=== PATIENT | female | born 1940 | race Two or more races ===

== ENCOUNTER 2022-05-21 12:31 | Emergency (ER) | payer MEDICARE ==
[~2022-05-21] VITALS: Ht 152.4 cm; Wt 49.9 kg
[2022-05-21 13:00] LABS: HEMATOCRIT 38.9 % (31.2-41.9); MEAN CORPUSCULAR HEMOGLOBIN 31.2 uug (24.7-32.8); MEAN CORPUSCULAR VOLUME 93.9 fL (75.5-95.3); PLATELET COUNT (AUTO) 256 K/uL (179-408)
[2022-05-21] MEDS ORDERED: METO25TA6 PO (13:15)
[2022-05-21] MEDS ORDERED: GABA600T12 PO (13:15)
[2022-05-21] MEDS ORDERED: LORA-258 PO (13:15)
[2022-05-21] MEDS ORDERED: HYDR-4077 PO (13:15)
--- NOTE | 2022-05-21 13:20 | NUR ---
at bedside, examining pt.
[2022-05-21 13:31] LABS: CARBON DIOXIDE 29 mmol/L (21-32); CHLORIDE 92 mmol/L (98-107); CREATININE 0.8 mg/dL (0.6-1.3); GLUCOSE 96 mg/dL (74-106); POTASSIUM 4.4 mmol/L (3.5-5.1); UREA NITROGEN, BLOOD 16 mg/dL (7-18)
[2022-05-21 13:40] LABS: ALANINE AMINOTRANSFERASE 46 U/L (14-59); ALKALINE PHOSPHATASE 68 U/L (50-136); ASPARTATE AMINOTRANSFERASE 35 U/L (15-37); BILIRUBIN,DIRECT 0.2 mg/dL (0.0-0.2); BILIRUBIN,TOTAL 0.5 mg/dL (0.2-1.0); TOTAL PROTEIN, SERUM 7.4 g/dL (6.4-8.2)
--- NOTE | 2022-05-21 15:09 | NUR ---
DCD instructions given to pt. who verbalized understanding. 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
[2022-05-21] MEDS ORDERED: MECL-159 PO (15:13)
--- NOTE | 2022-05-21 15:44 | NUR ---
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
--- NOTE | 2022-05-21 17:06 | NUR ---
HR of 79 SBP of 157/94. RR18, patient requesting ativan 5mg as stated " I take this medications twice a days as needed. call and educating pt. on care plan.
[2022-05-21] MEDS ORDERED: LORAZEPAM 0.5 MG TABLET ONE (17:27)
[2022-05-21] MEDS ORDERED: LORAZEPAM 0.5 MG TABLET PO ONE (17:30)
--- NOTE | 2022-05-21 17:47 | NUR ---
Awating transportation to take her back to [place]. Patient restless anxious and asking why transportation is not here. Patient informed over and over that ambulance is gonna be here to take her back.
--- NOTE | 2022-05-21 17:51 | NUR ---
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
--- NOTE | 2022-05-21 17:56 | NUR ---
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 PT..[id number]. IV line dcd.
== END 2022-05-21 18:05 ==
LOC: ER 12:31
DX: I10 Essential (primary) hypertension (principal); R42 Dizziness and giddiness; I25.2 Old myocardial infarction; Z95.5 Presence of coronary angioplasty implant and graft; H40.9 Unspecified glaucoma; H35.30 Unspecified macular degeneration; H81.10 Benign paroxysmal vertigo, unspecified ear; K58.9 Irritable bowel syndrome, unspecified; J45.909 Unspecified asthma, uncomplicated; R91.1 Solitary pulmonary nodule; M48.061 Spinal stenosis, lumbar region without neurogenic claudication; R32 Unspecified urinary incontinence; S00.83XA Contusion of other part of head, initial encounter; W22.8XXA Striking against or struck by other objects, initial encounter; Y92.89 Other specified places as the place of occurrence of the external cause; I25.10 Atherosclerotic heart disease of native coronary artery without angina pectoris; Z88.0 Allergy status to penicillin; Z88.2 Allergy status to sulfonamides; Z88.8 Allergy status to other drugs, medicaments and biological substances
CPT/HCPCS: 36415; 70450; 71045; 84484; 85025; 93005; A4663

== ENCOUNTER 2022-10-19 20:49 | Emergency (ER) | payer BC, MEDICARE ==
[~2022-10-19] VITALS: Ht 144.8 cm; Wt 49.4 kg
[~2022-10-19 20:49] MED LIST: GABA600T12 PO; HYDR-4077 PO; LORA-258 PO; MECL-159 PO; METO25TA6 PO
[2022-10-19] MEDS ORDERED: MECLIZINE HCL 25 MG TABLET PO ONE (22:15)
[2022-10-19 22:30] LABS: HEMATOCRIT 38.5 % (31.2-41.9); MEAN CORPUSCULAR HEMOGLOBIN 31.5 uug (24.7-32.8); MEAN CORPUSCULAR VOLUME 95.4 fL (75.5-95.3); PLATELET COUNT (AUTO) 191 K/uL (179-408)
[2022-10-19] MEDS ORDERED: MECLIZINE HCL 25 MG TABLET ONE (22:33)
[2022-10-19 22:40] LABS: NEUTROPHILS % (MANUAL) 54 % (42-75)
[2022-10-19 22:41] LABS: EOSINOPHILS % (MANUAL) 10 % (0-8); LYMPHOCYTES % (MANUAL) 19 % (20-40); MONOCYTES % (MANUAL) 16 % (2-10)
[2022-10-19 22:42] LABS: BASOPHILS % (MANUAL) 1 % (0-2); CREATININE 0.8 mg/dL (0.6-1.3); POTASSIUM 3.8 mmol/L (3.5-5.1)
--- NOTE | 2022-10-19 22:55 | NUR ---
Patient walked to the bathroom, standby assist.
[2022-10-19] MEDS ORDERED: MAGNESIUM SULFATE/D5W 200 ML ONE (23:52)
[2022-10-19] MEDS: MAGNESIUM SULFATE/D5W 100 ML IV SCH (23:57)
[2022-10-20] MEDS: MAGNESIUM SULFATE/D5W 100 ML IV SCH (00:35)
[2022-10-20 00:38] LABS: *BILIRUBIN,URIN NEGATIVE (NEGATIVE); *BLOOD, URINE NEGATIVE (NEGATIVE); *COLOR,URINE YELLOW (YELLOW); *KETONES,URINE NEGATIVE (NEGATIVE); *UROBILINOGEN,URINE 0.2 E.U./dl (NORMAL); LEUKOCYTE ESTERASE ,URINE TRACE (NEGATIVE); NITRITE, URINE NEGATIVE (NEGATIVE); UGLUCOSE NEGATIVE (NEGATIVE)
[2022-10-20 00:42] LABS: *CLARITY,URINE HAZY (CLEAR)
[2022-10-20 00:43] LABS: BACTERIA,URINE FEW /HPF (NONE SEEN); SQUAMOUS EPITHELIAL CELL,UR FEW /HPF (NONE SEEN)
[2022-10-20] MEDS ORDERED: NITROFURANTOIN/NITROFURAN MAC 100 MG CAPSULE PO ONE ×2 (02:00→02:09)
[2022-10-20] MEDS ORDERED: NITR100C6 PO (04:13)
[2022-10-20] MEDS ORDERED: MECL-159 PO (04:13)
--- NOTE | 2022-10-20 04:46 | NUR ---
Patient discharged to home in stable condition. Written and verbal after care instructions given. Patient verbalizes understanding of instructions. Stressed follow up or return to ER for worsening s/s.
--- NOTE | 2022-10-20 04:52 | NUR ---
Called [facility] ambulance for transportation back to [facility]. 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
--- NOTE | 2022-10-20 05:23 | NUR ---
Patient reported feeling dizziness. Given verbal order per Dr. Murillo to give another dose of Antivert 25mg PO.
[2022-10-20] MEDS ORDERED: MECLIZINE HCL 25 MG TABLET ONE (05:30)
[2022-10-20] MEDS ORDERED: MECLIZINE HCL 25 MG TABLET PO ONE (05:45)
--- NOTE | 2022-10-20 05:50 | NUR ---
Patient complaining of left shoulder pain. Patient requesting tylenol.
[2022-10-20] MEDS ORDERED: ACETAMINOPHEN 325 MG TABLET ONE (05:53)
--- NOTE | 2022-10-20 05:54 | NUR ---
Given verbal order by Dr. Murillo to give patient Acetaminophen 325mg PO for shoulder pain.
[2022-10-20] MEDS ORDERED: ACETAMINOPHEN 325 MG TABLET PO ONE (06:15)
--- NOTE | 2022-10-20 06:20 | NUR ---
Patient's blood pressure 160/[address] [facility] transport arrival[address] Murillo aware. Per Dr. Murillo, patient medically clear for discharge. No additional orders at this time.
--- NOTE | 2022-10-20 06:45 | NUR ---
[facility] picked patient up via gurney to transfer patient back to [facility] with personal belongings. Patient in stable conditions, no signs of distress.
--- NOTE | 2022-10-20 06:52 | NUR ---
Patient discharged to home in stable condition via gurney with personal belongings. Written and verbal after care instructions given. Patient verbalizes understanding of instructions. Stressed follow up or return to ER for worsening s/s.
[2022-10-20 06:55] VITALS: BP 151/86
== END 2022-10-20 06:50 ==
LOC: ER 20:55
DX: R42 Dizziness and giddiness (principal); N39.0 Urinary tract infection, site not specified; I10 Essential (primary) hypertension; I25.10 Atherosclerotic heart disease of native coronary artery without angina pectoris; I25.2 Old myocardial infarction; Z88.0 Allergy status to penicillin; Z95.5 Presence of coronary angioplasty implant and graft; Z87.09 Personal history of other diseases of the respiratory system; K58.9 Irritable bowel syndrome, unspecified; J45.909 Unspecified asthma, uncomplicated; Z88.2 Allergy status to sulfonamides; Z88.6 Allergy status to analgesic agent; Z88.1 Allergy status to other antibiotic agents; Z79.899 Other long term (current) drug therapy
CPT/HCPCS: 99284; 96365; 96366; 80048; 83036; 83735; 85025; 36415; 81001; 85007; J3475; 70030-TC; A4663; J8597

== ENCOUNTER 2023-01-02 07:00 | Emergency (ER) | payer MEDICARE, BC ==
[~2023-01-02] VITALS: Ht 152.4 cm; Wt 49.9 kg
[~2023-01-02 07:00] MED LIST changes: +NITR100C6 PO
[2023-01-02] MEDS ORDERED: ACETAMINOPHEN 325 MG TABLET PO ONE (07:30)
--- NOTE | 2023-01-02 07:34 | NUR ---
Pt seen by . Safety measures in place. Will continue to monitor.
[2023-01-02] MEDS ORDERED: ACETAMINOPHEN 325 MG TABLET ONE (07:35)
--- NOTE | 2023-01-02 08:54 | NUR ---
Pt signed discharge paperwork. Contacted [employer] to pick Pt up and return her back to [facility], [place]. Iván (concrete paving machine operator) stated they will come "in about 30 min." Safety measures in place. Will continue to monitor.
--- NOTE | 2023-01-02 09:34 | NUR ---
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 Gave report to Fito Warren (EMT).
--- NOTE | 2023-01-02 09:47 | NUR ---
Patient discharged to [facility] in stable condition. Written and verbal after care instructions given. Patient picked up by [employer] [place] [employer]. Patient transferred [facility]. Patient verbalizes understanding of instructions. Stressed follow up or return to ER for worsening s/s.
[2023-01-02 09:48] VITALS: BP 166/71
== END 2023-01-02 09:49 | disposition home or self-care (01) ==
LOC: ER 07:00
DX: S51.012A Laceration without foreign body of left elbow, initial encounter (principal); R51.9 Headache, unspecified; I25.10 Atherosclerotic heart disease of native coronary artery without angina pectoris; J45.909 Unspecified asthma, uncomplicated; Z88.0 Allergy status to penicillin; Z88.2 Allergy status to sulfonamides; Z88.5 Allergy status to narcotic agent; Z88.8 Allergy status to other drugs, medicaments and biological substances; Z79.899 Other long term (current) drug therapy; W18.39XA Other fall on same level, initial encounter; Y93.89 Activity, other specified; Y92.89 Other specified places as the place of occurrence of the external cause; Y99.8 Other external cause status
CPT/HCPCS: 70450; 72125; 72170; A4663

== ENCOUNTER 2023-01-21 05:44 | Inpatient (IN) | payer MEDICARE, BC ==
[~2023-01-21] VITALS: Ht 144.8 cm; Wt 52.6 kg
--- NOTE | 2023-01-21 05:51 | NUR ---
Dr. Haywood at bedside. MSE in progress.
[2023-01-21] MEDS ORDERED: TRAMADOL HCL 50 MG TABLET ONE (05:57)
[2023-01-21] MEDS ORDERED: TRAMADOL HCL 50 MG TABLET PO ONE (06:00)
--- NOTE | 2023-01-21 07:14 | NUR ---
assumed patient care 82 years old female s/p mechanical fall patient at Ct.
[2023-01-21] MEDS ORDERED: LORAZEPAM 0.5 MG TABLET PO ONE (08:15)
[2023-01-21] MEDS ORDERED: LORAZEPAM 0.5 MG TABLET ONE (08:33)
[2023-01-21 08:38] LABS: *BILIRUBIN,URIN NEGATIVE (NEGATIVE); *BLOOD, URINE NEGATIVE (NEGATIVE); *CLARITY,URINE CLEAR (CLEAR); *COLOR,URINE YELLOW (YELLOW); *KETONES,URINE NEGATIVE (NEGATIVE); *UROBILINOGEN,URINE 0.2 E.U./dl (NORMAL); LEUKOCYTE ESTERASE ,URINE NEGATIVE (NEGATIVE); NITRITE, URINE NEGATIVE (NEGATIVE); PH,URINE 6.5 (5.0-8.0); UGLUCOSE NEGATIVE (NEGATIVE)
[2023-01-21 08:39] LABS: HEMATOCRIT 38.4 % (31.2-41.9); MEAN CORPUSCULAR HEMOGLOBIN 31.5 uug (24.7-32.8); MEAN CORPUSCULAR VOLUME 95.4 fL (75.5-95.3); PLATELET COUNT (AUTO) 250 K/uL (179-408)
[2023-01-21 08:50] LABS: CREATININE 0.7 mg/dL (0.6-1.3); POTASSIUM 3.8 mmol/L (3.5-5.1)
[2023-01-21 08:56] LABS: BILIRUBIN,TOTAL 0.6 mg/dL (0.2-1.0); TOTAL PROTEIN, SERUM 7.4 g/dL (6.4-8.2)
--- NOTE | 2023-01-21 09:00 | NUR ---
Dr Rider, Neuro surgeon paged by MARY URIAS.
--- NOTE | 2023-01-21 09:24 | NUR ---
Paged Dr Braxton for Tele admit.
--- NOTE | 2023-01-21 10:25 | NUR ---
patient stable for transfer to unit bed 321 for continuity of care no sob no cp, alert, able to answer all questions.
--- NOTE | 2023-01-21 10:30 | NUR ---
Admitted via [place], accompanied by nurse. Oriented to surroundings.
[2023-01-21 11:50] VITALS: BP 95/51
[2023-01-21] MEDS ORDERED: TEMAZEPAM 15 MG CAPSULE PO PRN (12:15)
[2023-01-21] MEDS ORDERED: MORPHINE SULFATE 2 MG/1 ML DISP.SYRIN IV PRN (12:15)
[2023-01-21] MEDS ORDERED: MAGNESIUM HYDROXIDE 30 ML LIQUID UDC PO PRN (12:15)
[2023-01-21] MEDS ORDERED: TEMAZEPAM 7.5 MG CAPSULE PO PRN (12:30)
[2023-01-21] MEDS ORDERED: LOSA25TA3 PO (12:57)
[2023-01-21] MEDS ORDERED: ROSU5TAB PO (12:57)
[2023-01-21] MEDS ORDERED: ASPI-1101 PO (12:57)
[2023-01-21] MEDS ORDERED: METO50TA7 PO (12:57)
[2023-01-21] MEDS ORDERED: ASCO500T85 PO (12:57)
[2023-01-21] MEDS ORDERED: VIT1CAPS44 PO (12:57)
[2023-01-21] MEDS ORDERED: AMLO5TAB4 PO (12:57)
[2023-01-21] MEDS ORDERED: LATA2.5D2 EACHEYE (12:57)
--- NOTE | 2023-01-21 13:00 | NUR ---
Placed on telemetry. Voiding qs. Denies pain or discomfort.
[2023-01-21] MEDS ORDERED: TRAM50TA2 PO (13:01)
[2023-01-21] MEDS ORDERED: FLUT12AE20 IH (13:01)
[2023-01-21] MEDS ORDERED: LOPE2TAB25 PO (13:01)
[2023-01-21] MEDS ORDERED: ACET-2605 PO (13:01)
[2023-01-21] MEDS ORDERED: SENN8.6T19 PO (13:01)
[2023-01-21] MEDS ORDERED: ALBU18HF2 IH (13:01)
[2023-01-21] MEDS ORDERED: DOCU-141 PO (13:01)
[2023-01-21] MEDS ORDERED: CHOL10005 PO (13:01)
[2023-01-21 15:41] VITALS: BP 116/59
[2023-01-21] MEDS ORDERED: hydrALAZINE HCL 50 MG TABLET PO SCH (17:00)
[2023-01-21] MEDS: TRAMADOL HCL 50 MG TABLET PO PRN (18:31)
[2023-01-21 20:00] VITALS: BP 164/76
--- NOTE | 2023-01-21 20:00 | NUR ---
patient in bed awake and alert and follow commands and able to moved upper and lower extremities lower bilateral extremities weak she uses a cane .pure wick in placed with yellowish urine . no respiratory distress noted breathing even and unlabored . hob up call light placed with in reach advised to call and not to get oob.
[2023-01-21] MEDS ORDERED: SENNOSIDES 1 TABLET PO PRN (20:45)
[2023-01-21] MEDS ORDERED: TRAMADOL HCL 50 MG TABLET PO PRN (20:45)
[2023-01-21] MEDS ORDERED: ALBUTEROL SULFATE 2.5 MG/3 ML NEBU NEB PRN (20:45)
[2023-01-21] MEDS ORDERED: DOCUSATE SODIUM 250 MG CAPSULE PO SCH (21:00)
[2023-01-21 21:30] VITALS: BP 153/56
[2023-01-21] MEDS: DOCUSATE SODIUM 100 MG CAPSULE PO SCH (21:49)
--- NOTE | 2023-01-21 22:10 | NUR ---
patient requested something to eat given jello and applejuice .
--- NOTE | 2023-01-21 22:11 | NUR ---
changed soiled linens and gown . patient able to help in turning and repositioning .
[2023-01-22] MEDS: ONDANSETRON 4 MG/2 ML VIAL IV PRN ×2 (01:25→17:52)
[2023-01-22] MEDS: LORAZEPAM 0.5 MG TABLET PO PRN ×2 (01:25→17:52)
--- NOTE | 2023-01-22 01:25 | NUR ---
patient called and requested Ativan she said Ativan comfort her and put her to sleep . given prn Ativan patient MOM c/o she wants to moved her bowel .
[2023-01-22 04:00] VITALS: BP 132/55
--- NOTE | 2023-01-22 05:00 | NUR ---
patient in bed sleeping no respiratory distress noted .
[2023-01-22] MEDS: PANTOPRAZOLE SODIUM 40 MG TABLET.DR PO SCH (06:12)
[2023-01-22 06:14] LABS: HEMATOCRIT 36.2 % (31.2-41.9); MEAN CORPUSCULAR HEMOGLOBIN 31.9 uug (24.7-32.8); MEAN CORPUSCULAR VOLUME 94.3 fL (75.5-95.3); PLATELET COUNT (AUTO) 237 K/uL (179-408)
[2023-01-22 06:31] LABS: THYROID STIMULATING HORMONE 1.902 mIU/mL (0.358-3.740)
[2023-01-22 06:45] LABS: ALANINE AMINOTRANSFERASE 57 U/L (14-59); ALKALINE PHOSPHATASE 95 U/L (50-136); ASPARTATE AMINOTRANSFERASE 44 U/L (15-37); BILIRUBIN,TOTAL 0.5 mg/dL (0.2-1.0); CARBON DIOXIDE 28 mmol/L (21-32); CHLORIDE 96 mmol/L (98-107); CHOLESTEROL 140 mg/dL (<200); CREATININE 0.7 mg/dL (0.6-1.3); GLUCOSE 96 mg/dL (74-106); HDL CHOLESTEROL 79 mg/dL (40-60); MAGNESIUM 1.7 mg/dL (1.8-2.4); PHOSPHOROUS 3.9 mg/dL (2.5-4.9); POTASSIUM 4.2 mmol/L (3.5-5.1); TOTAL PROTEIN, SERUM 6.8 g/dL (6.4-8.2); TRIGLYCERIDES 81 MG/DL (30-150); UREA NITROGEN, BLOOD 12 mg/dL (7-18)
[2023-01-22 08:52] VITALS: BP 155/64
[2023-01-22] MEDS ORDERED: MAGNESIUM SULFATE/D5W 100 ML IV SCH (09:00)
[2023-01-22] MEDS ORDERED: Medication Not On Formulary EA (Vit C/E/Zn/Coppr/Lutein/Zeaxan (Preservision Areds 2 Sof PO SCH (09:00)
[2023-01-22] MEDS: TRAMADOL HCL 50 MG TABLET PO PRN ×2 (09:02→20:22)
[2023-01-22] MEDS: AMLODIPINE 5 MG TABLET PO SCH (11:09)
[2023-01-22 11:33] VITALS: BP 140/72
[2023-01-22 15:56] VITALS: BP 129/58
[2023-01-22] MEDS: DOCUSATE SODIUM 100 MG CAPSULE PO SCH (20:21)
[2023-01-22] MEDS: LATANOPROST OPHT DROP 2.5 ML BOTTLE EACHEYE SCH (20:26)
[2023-01-22 20:48] VITALS: BP 142/47
[2023-01-22] MEDS: ACETAMINOPHEN 325 MG TABLET PO PRN (22:50)
[2023-01-23 04:38] VITALS: BP 122/42
[2023-01-23] MEDS: PANTOPRAZOLE SODIUM 40 MG TABLET.DR PO SCH (06:09)
--- NOTE | 2023-01-23 07:30 | NUR ---
Awake, alert, oriented x 4, able to move all extremities on purpose. Call light with in reach. Bed alarm on
[2023-01-23] MEDS: AMLODIPINE 5 MG TABLET PO SCH (08:40)
[2023-01-23] MEDS ORDERED: BISACODYL 10 MG SUPP.RECT RC PRN (09:45)
--- NOTE | 2023-01-23 10:30 | NUR ---
No BM x 3 days. Senokot po and Dulcolax suppository given. With BM to formed stool in moderate amount.
[2023-01-23 12:07] VITALS: BP 117/46
--- NOTE | 2023-01-23 14:00 | NUR ---
Resting between care
[2023-01-23 16:00] VITALS: BP 120/49
[2023-01-23] MEDS: TRAMADOL HCL 50 MG TABLET PO PRN (16:31)
--- NOTE | 2023-01-23 16:31 | NUR ---
Reports of neck pain 04/22, medicated with Tramadol with relief
[2023-01-23] MEDS: LORAZEPAM 0.5 MG TABLET PO PRN ×2 (17:26→22:49)
--- NOTE | 2023-01-23 17:34 | NUR ---
Anxious, HR 140. Redirected and reassurance given. Ativan given as ordered
[2023-01-23 20:38] VITALS: BP 120/43
[2023-01-23] MEDS: LATANOPROST OPHT DROP 2.5 ML BOTTLE EACHEYE SCH (20:57)
[2023-01-23] MEDS: ACETAMINOPHEN 325 MG TABLET PO PRN (20:57)
--- NOTE | 2023-01-23 20:57 | NUR ---
patient called and verbalized lower leg pain -hip pain neck pain -generalized body pain given Tylenol po .
[2023-01-23] MEDS: DOCUSATE SODIUM 100 MG CAPSULE PO SCH (20:58)
[2023-01-24 04:00] VITALS: BP 119/48
--- NOTE | 2023-01-24 04:30 | NUR ---
am care done help mobile heavy equipment mechanic changed patient incontinent of urine patient able to help in turning .
[2023-01-24] MEDS: PANTOPRAZOLE SODIUM 40 MG TABLET.DR PO SCH (06:15)
[2023-01-24] MEDS: AMLODIPINE 5 MG TABLET PO SCH (08:39)
[2023-01-24] MEDS: TRAMADOL HCL 50 MG TABLET PO PRN (09:24)
[2023-01-24] MEDS: LORAZEPAM 0.5 MG TABLET PO PRN (09:25)
[2023-01-24 12:00] VITALS: BP 126/54
[2023-01-24] MEDS ORDERED: FUROSEMIDE 20 MG/2 ML VIAL IV ONE (12:45)
[2023-01-24] MEDS ORDERED: TEMA7.5C PO (14:43)
[2023-01-24] MEDS ORDERED: BISA10SU12 RC (14:43)
[2023-01-24] MEDS ORDERED: MAGN400O6 PO (14:43)
[2023-01-24] MEDS ORDERED: ALBU2.5V7 NEB (14:43)
[2023-01-24] MEDS ORDERED: DOCU-141 PO (14:43)
[2023-01-24] MEDS ORDERED: GABA300C PO (14:43)
[2023-01-24] MEDS ORDERED: PANT40TA49 PO (14:43)
[2023-01-24] MEDS: ONDANSETRON 4 MG/2 ML VIAL IV PRN (15:18)
--- NOTE | 2023-01-24 15:30 | NUR ---
Son at bedside. Happy that Mom is being accepted to [facility].
[2023-01-24 16:11] VITALS: BP 148/49
--- NOTE | 2023-01-24 17:30 | NUR ---
Discharged to ARU. No c/o discomfort.
== END 2023-01-24 17:25 | DRG 86 ==
LOC: ER 05:47 → TELE3 10:25
PROVIDERS: ADMIT Internal Medicine; ATTEND Internal Medicine
DX: S06.6X0A Traumatic subarachnoid hemorrhage without loss of consciousness, initial encounter (principal); D68.59 Other primary thrombophilia; R40.2362 Coma scale, best motor response, obeys commands, at arrival to emergency department; R40.2142 Coma scale, eyes open, spontaneous, at arrival to emergency department; R40.2252 Coma scale, best verbal response, oriented, at arrival to emergency department; S00.03XA Contusion of scalp, initial encounter; S30.0XXA Contusion of lower back and pelvis, initial encounter; W01.198A Fall on same level from slipping, tripping and stumbling with subsequent striking against other object, initial encounter; Y92.098 Other place in other non-institutional residence as the place of occurrence of the external cause; K58.1 Irritable bowel syndrome with constipation; I25.2 Old myocardial infarction; I25.10 Atherosclerotic heart disease of native coronary artery without angina pectoris; J45.909 Unspecified asthma, uncomplicated; M43.12 Spondylolisthesis, cervical region; I35.8 Other nonrheumatic aortic valve disorders; F41.9 Anxiety disorder, unspecified; Z86.03 Personal history of neoplasm of uncertain behavior; Z74.09 Other reduced mobility; R26.89 Other abnormalities of gait and mobility; I11.9 Hypertensive heart disease without heart failure; M99.51 Intervertebral disc stenosis of neural canal of cervical region; S06.5X0A Traumatic subdural hemorrhage without loss of consciousness, initial encounter; M48.061 Spinal stenosis, lumbar region without neurogenic claudication; H40.9 Unspecified glaucoma; H35.30 Unspecified macular degeneration; Z20.822 Contact with and (suspected) exposure to COVID-19; Z95.5 Presence of coronary angioplasty implant and graft; Z88.1 Allergy status to other antibiotic agents; Z88.0 Allergy status to penicillin; Z88.2 Allergy status to sulfonamides; Z88.8 Allergy status to other drugs, medicaments and biological substances; Z79.899 Other long term (current) drug therapy; Z87.891 Personal history of nicotine dependence; I70.91 Generalized atherosclerosis
CPT/HCPCS: 36415; 70450; 71045; 72125; 72170; 72220; 83735; 84100; 84443; 84484; 85025; 85730; 93005; 93307; A4663; G0378; J1940; J2405; J3475

== ENCOUNTER 2023-01-24 17:46 | Inpatient (IN) | payer MEDICARE, BC ==
[~2023-01-24] VITALS: Ht 144.8 cm; Wt 52.7 kg
[~2023-01-24 17:46] MED LIST changes: +ACET-2605 PO; +ALBU18HF2 IH; +ALBU2.5V7 NEB; +AMLO5TAB4 PO; +ASCO500T85 PO; +ASPI-1101 PO; +BISA10SU12 RC; +CHOL10005 PO; +DOCU-141 PO; +FLUT12AE20 IH; +GABA300C PO; -HYDR-4077 PO; +LATA2.5D2 EACHEYE; +LOPE2TAB25 PO; +LOSA25TA3 PO; +MAGN400O6 PO; -METO25TA6 PO; +METO50TA7 PO; -NITR100C6 PO; +PANT40TA49 PO; +ROSU5TAB PO; +SENN8.6T19 PO; +TEMA7.5C PO; +TRAM50TA2 PO; +VIT1CAPS44 PO
[2023-01-24] MEDS ORDERED: ALBUTEROL SULFATE 2.5 MG/3 ML NEBU NEB PRN (18:45)
[2023-01-24] MEDS ORDERED: MECLIZINE HCL 25 MG TABLET PO PRN (18:45)
[2023-01-24] MEDS ORDERED: MAGNESIUM HYDROXIDE 30 ML LIQUID UDC PO PRN (18:45)
[2023-01-24] MEDS: LORAZEPAM 0.5 MG TABLET PO PRN (19:54)
[2023-01-24] MEDS: TRAMADOL HCL 50 MG TABLET PO PRN (19:56)
[2023-01-24 20:10] VITALS: BP 112/53
[2023-01-24] MEDS: GABAPENTIN 300 MG CAPSULE PO SCH (20:44)
[2023-01-24] MEDS: DOCUSATE SODIUM 100 MG CAPSULE PO SCH (20:45)
[2023-01-24] MEDS ORDERED: LATANOPROST OPHT DROP 2.5 ML BOTTLE EACHEYE SCH (21:00)
[2023-01-24] MEDS ORDERED: ATORVASTATIN 10 MG TABLET PO SCH (21:15)
[2023-01-25] MEDS: TEMAZEPAM 7.5 MG CAPSULE PO PRN (00:01)
[2023-01-25 04:06] VITALS: BP 113/41
[2023-01-25] MEDS: PANTOPRAZOLE SODIUM 40 MG TABLET.DR PO SCH (06:20)
[2023-01-25] MEDS ORDERED: LATANOPROST OPHT DROP 2.5 ML BOTTLE EACHEYE SCH (06:35)
--- NOTE | 2023-01-25 07:02 | NUR ---
Patient slept well, no noted acute distress. IV access to RFA intact and patent. Medicated for pain as ordered. Needs assessed and attended to.
[2023-01-25 08:00] VITALS: BP 123/54
--- NOTE | 2023-01-25 08:00 | NUR ---
Sleeping, appears comfortable.
[2023-01-25] MEDS ORDERED: Medication Not On Formulary EA (Vit C/E/Zn/Coppr/Lutein/Zeaxan (Preservision Areds 2 Sof PO SCH (09:00)
[2023-01-25] MEDS: BETA CAROTENE/VIT C & E/MIN TABLET PO SCH ×2 (09:21→16:53)
[2023-01-25] MEDS: AMLODIPINE 5 MG TABLET PO SCH (09:21)
[2023-01-25] MEDS: REMEDY ESSENTIAL ZINC PASTE 113 GM TOP SCH ×2 (09:22→20:46)
[2023-01-25] MEDS: BISACODYL 10 MG SUPP.RECT RC PRN (13:15)
--- NOTE | 2023-01-25 13:15 | NUR ---
No BM x 2 days, Dulcolax suppository given per request.
[2023-01-25 16:00] VITALS: BP 109/52
[2023-01-25] MEDS: ACETAMINOPHEN 325 MG TABLET PO PRN (17:13)
--- NOTE | 2023-01-25 17:15 | NUR ---
Reports of headache. Tylenol po given with relief
[2023-01-25 20:11] VITALS: BP 116/48
[2023-01-25] MEDS: GABAPENTIN 300 MG CAPSULE PO SCH (20:45)
[2023-01-25] MEDS: DOCUSATE SODIUM 100 MG CAPSULE PO SCH (20:45)
[2023-01-25] MEDS: ATORVASTATIN 10 MG TABLET PO SCH (20:45)
[2023-01-25] MEDS: LATANOPROST OPHT DROP 2.5 ML BOTTLE EACHEYE SCH (20:47)
[2023-01-25] MEDS: LORAZEPAM 0.5 MG TABLET PO PRN (22:25)
[2023-01-26] MEDS: ACETAMINOPHEN 325 MG TABLET PO PRN ×2 (00:21→21:53)
[2023-01-26 04:00] VITALS: BP 124/44
[2023-01-26] MEDS: PANTOPRAZOLE SODIUM 40 MG TABLET.DR PO SCH (06:08)
[2023-01-26 07:20] VITALS: BP 123/52
[2023-01-26] MEDS: AMLODIPINE 5 MG TABLET PO SCH (08:39)
[2023-01-26] MEDS: BETA CAROTENE/VIT C & E/MIN TABLET PO SCH ×2 (08:39→16:48)
[2023-01-26] MEDS: REMEDY ESSENTIAL ZINC PASTE 113 GM TOP SCH ×2 (08:40→20:40)
--- NOTE | 2023-01-26 09:49 | NUR ---
0730-Rec'd patient in bed, awake, in no apparent respiratory distress; patient denies pain or any discomfort, skin W/D to the touch, afebrile; A/Ox2-3, verbalizes needs and follows directions. Call light at reach and encouraged to use it every time help is needed. 0900-Schedule medications administered as ordered, no ASE noted. Oral fluids taken well. Patient continues eating her breakfast with no swallowing problems observed, supervision and assist provided as needed. All safety measures in place.
[2023-01-26 16:00] VITALS: BP 114/45
[2023-01-26] MEDS: TRAMADOL HCL 50 MG TABLET PO PRN (17:21)
--- NOTE | 2023-01-26 19:46 | NUR ---
Patient within usual baseline through out the shift, no DILCIA noted; Assist provided with her ADLs/personal care/hygiene. Patient with BRP, assist to the restroom as needed through out the shift. Medication administered as scheduled/ordered by MD. No ASE noted to medication. Patient tolerating meals well, no C/O GI discomfort. Continues under rehab for PT/OT skilled services as ordered and tolerated well. Patient able to actively participate in therapy and improving. Safety precautions observed. Call light at reach, reminded and encouraged patient to use it every time help is needed.
[2023-01-26 20:00] VITALS: BP 136/51
[2023-01-26] MEDS: DOCUSATE SODIUM 100 MG CAPSULE PO SCH (20:39)
[2023-01-26] MEDS: ATORVASTATIN 10 MG TABLET PO SCH (20:39)
[2023-01-26] MEDS: GABAPENTIN 300 MG CAPSULE PO SCH (20:39)
[2023-01-26] MEDS: LATANOPROST OPHT DROP 2.5 ML BOTTLE EACHEYE SCH (20:39)
[2023-01-26] MEDS: GUAIFENESIN LA 600 MG TABLET.SA PO SCH (20:39)
[2023-01-26] MEDS: TEMAZEPAM 7.5 MG CAPSULE PO PRN (21:54)
[2023-01-27 04:00] VITALS: BP 129/47
--- NOTE | 2023-01-27 04:06 | NUR ---
Slept comfortably. Denies any pain or discomfort. IV site removed. Noted to be infiltrated. Elevated right arm and provided warm compress for 30 min. Pt verbalized relief. All needs attended. Call light within reach. Safety precautions maintained.
[2023-01-27] MEDS: PANTOPRAZOLE SODIUM 40 MG TABLET.DR PO SCH (06:12)
[2023-01-27] MEDS: TRAMADOL HCL 50 MG TABLET PO PRN ×2 (06:24→12:28)
[2023-01-27 06:54] LABS: HEMATOCRIT 34.4 % (31.2-41.9); MEAN CORPUSCULAR HEMOGLOBIN 32.1 uug (24.7-32.8); MEAN CORPUSCULAR VOLUME 94.9 fL (75.5-95.3); PLATELET COUNT (AUTO) 202 K/uL (179-408)
[2023-01-27 07:20] LABS: CARBON DIOXIDE 29 mmol/L (21-32); CHLORIDE 94 mmol/L (98-107); CREATININE 0.9 mg/dL (0.6-1.3); GLUCOSE 93 mg/dL (74-106); PHOSPHOROUS 4.2 mg/dL (2.5-4.9); POTASSIUM 4.1 mmol/L (3.5-5.1); UREA NITROGEN, BLOOD 19 mg/dL (7-18)
[2023-01-27] MEDS: GUAIFENESIN LA 600 MG TABLET.SA PO SCH ×2 (08:46→21:10)
[2023-01-27] MEDS: REMEDY ESSENTIAL ZINC PASTE 113 GM TOP SCH ×2 (08:46→21:11)
[2023-01-27] MEDS: BETA CAROTENE/VIT C & E/MIN TABLET PO SCH ×2 (08:46→16:31)
[2023-01-27] MEDS: AMLODIPINE 5 MG TABLET PO SCH (08:46)
--- NOTE | 2023-01-27 13:11 | NUR ---
INTERDISCIPLINARY TEAM CONFERENCE
[2023-01-27 14:22] LABS: BAND % (MANUAL) 0 % (0-10); LYMPHOCYTES % (MANUAL) 17 % (20-40); NEUTROPHILS % (MANUAL) 46 % (42-75)
[2023-01-27 14:23] LABS: BASOPHILS % (MANUAL) 0 % (0-2); BLASTS, MANUAL % 0 % (0-0); EOSINOPHILS % (MANUAL) 17 % (0-8); METAMYELOCYTES % 0 % (0-1); MONOCYTES % (MANUAL) 14 % (2-10); MYELOCYTES % 0 % (0-0); PROMYELOCYTES % 0 %; REACTIVE LYMPHOCYTES 3 % (0-0)
--- NOTE | 2023-01-27 14:30 | NUR ---
INDIVIDUALIZED PLAN OF CARE
--- NOTE | 2023-01-27 14:47 | NUR ---
0730-Patient in bed, awake, A/Ox3, verbalizes needs and follows simple directions. Patient denies pain. No resp. distress/cough noted. Bedside table in place with all needed items accessible, call light at reach. Encouraged to use it every time help is needed. 0900-Scheduled medication administered no ASE noted. Oral fluids taken as offered; patient with no c/o pain.
--- NOTE | 2023-01-27 19:02 | NUR ---
NO DILCIA NOTED THROUGH OUT THE SHIFT. PATIENT IN STABLE BASELINE CONDITIONS. VSS, CARE PROVIDED AT ROUTINE INTERVALS AND NEEDED, ASSIST WITH ADLS THROUGH OUT THE SHIFT. REPOSITIONED Q2HR FOR COMFORT AND PRESSURE RELIEF. OOB WITH REHAB FOR PT/OT SKILLED SERVICES AND ACTIVELY ABLE TO PARTICIPATE IN THERAPY AND MAKING GOOD PROGRESS. ALL NEEDS ANTICIPATED AND MET. ENDORSED PROPERLY TO RELIEVING NOC SHIFT RN.
[2023-01-27 20:36] VITALS: BP 145/63
[2023-01-27] MEDS: ATORVASTATIN 10 MG TABLET PO SCH (21:10)
[2023-01-27] MEDS: DOCUSATE SODIUM 100 MG CAPSULE PO SCH (21:10)
[2023-01-27] MEDS: LATANOPROST OPHT DROP 2.5 ML BOTTLE EACHEYE SCH (21:11)
[2023-01-27] MEDS: GABAPENTIN 300 MG CAPSULE PO SCH (21:11)
[2023-01-27] MEDS: LORAZEPAM 0.5 MG TABLET PO PRN (23:06)
[2023-01-28] MEDS: TRAMADOL HCL 50 MG TABLET PO PRN ×2 (00:15→21:30)
[2023-01-28 05:35] VITALS: BP 141/82
[2023-01-28] MEDS: PANTOPRAZOLE SODIUM 40 MG TABLET.DR PO SCH (05:54)
[2023-01-28] MEDS: AMLODIPINE 5 MG TABLET PO SCH (09:00)
[2023-01-28] MEDS: BETA CAROTENE/VIT C & E/MIN TABLET PO SCH ×2 (09:15→17:35)
[2023-01-28] MEDS: ACETAMINOPHEN 325 MG TABLET PO PRN (09:15)
[2023-01-28] MEDS: REMEDY ESSENTIAL ZINC PASTE 113 GM TOP SCH ×2 (09:16→20:03)
[2023-01-28] MEDS: GUAIFENESIN LA 600 MG TABLET.SA PO SCH ×2 (09:17→20:03)
--- NOTE | 2023-01-28 11:31 | NUR ---
Nursing- Has purewick on during the initial rounds, patient sat at the edge of bed during her meals. Ambulated by P.T on the hallway using FWW , no signs and symtoms of any dizziness during her activities B/P lying 130 50 HR 84, sitting 105/50 HR 90, b/ standing 107/51 HR 102 . encouraged to drink her fluids . Adequate relief of pain after tylenol 650 mg. po, tolerated her activities . Safety reviewed , compliance noted.
[2023-01-28] MEDS: SENNOSIDES 1 TABLET PO PRN (14:51)
[2023-01-28] MEDS: BISACODYL 10 MG SUPP.RECT RC PRN (14:51)
[2023-01-28 15:41] VITALS: BP 139/54
--- NOTE | 2023-01-28 16:38 | NUR ---
Nursing- Patient complained of being constipated,no BM for few days.Adequate fluid intake, requested a dulcolax supp., 1 administered WA, ambulated to the bathroom with own fww. cga., with good results, set up with her hygiene. Safety continue to emphasized, continue compliance noted.
[2023-01-28 20:00] VITALS: BP 158/61
[2023-01-28] MEDS: GABAPENTIN 300 MG CAPSULE PO SCH (20:03)
[2023-01-28] MEDS: DOCUSATE SODIUM 100 MG CAPSULE PO SCH (20:03)
[2023-01-28] MEDS: ATORVASTATIN 10 MG TABLET PO SCH (20:03)
[2023-01-28] MEDS: LORAZEPAM 0.5 MG TABLET PO PRN (20:03)
[2023-01-28] MEDS: LATANOPROST OPHT DROP 2.5 ML BOTTLE EACHEYE SCH (20:03)
[2023-01-29 04:00] VITALS: BP 133/57
[2023-01-29] MEDS: PANTOPRAZOLE SODIUM 40 MG TABLET.DR PO SCH (05:48)
--- NOTE | 2023-01-29 07:20 | NUR ---
Patient awake, alert and pleasant. She does not appear to be in distress and denies pain.
[2023-01-29 07:54] VITALS: BP 100/45
[2023-01-29] MEDS: REMEDY ESSENTIAL ZINC PASTE 113 GM TOP SCH ×2 (08:43→20:20)
[2023-01-29] MEDS: GUAIFENESIN LA 600 MG TABLET.SA PO SCH ×2 (08:43→20:20)
[2023-01-29] MEDS: AMLODIPINE 5 MG TABLET PO SCH (08:43)
[2023-01-29] MEDS: BETA CAROTENE/VIT C & E/MIN TABLET PO SCH ×2 (09:39→17:09)
[2023-01-29] MEDS: BISACODYL 10 MG SUPP.RECT RC PRN (13:09)
--- NOTE | 2023-01-29 13:10 | NUR ---
Patient states she feels bloated and thinks she need to have BM. Patient asked to have dulcolax supp, supp given as ordered and patient had a BM.
--- NOTE | 2023-01-29 15:00 | NUR ---
Patient assisted to the bathroom, had BM
[2023-01-29 16:31] VITALS: BP 117/50
[2023-01-29] MEDS: TRAMADOL HCL 50 MG TABLET PO PRN (18:46)
[2023-01-29 20:10] VITALS: BP 139/60
[2023-01-29] MEDS: LORAZEPAM 0.5 MG TABLET PO PRN (20:20)
[2023-01-29] MEDS: LATANOPROST OPHT DROP 2.5 ML BOTTLE EACHEYE SCH (20:20)
[2023-01-29] MEDS: ATORVASTATIN 10 MG TABLET PO SCH (20:20)
[2023-01-29] MEDS: DOCUSATE SODIUM 100 MG CAPSULE PO SCH (20:20)
[2023-01-29] MEDS: GABAPENTIN 300 MG CAPSULE PO SCH (20:20)
[2023-01-29] MEDS: ACETAMINOPHEN 325 MG TABLET PO PRN (22:15)
[2023-01-29] MEDS: TEMAZEPAM 7.5 MG CAPSULE PO PRN (22:37)
[2023-01-30 04:43] VITALS: BP 142/57
[2023-01-30] MEDS: PANTOPRAZOLE SODIUM 40 MG TABLET.DR PO SCH (06:03)
[2023-01-30 07:36] LABS: ALANINE AMINOTRANSFERASE 34 U/L (14-59); ALKALINE PHOSPHATASE 92 U/L (50-136); ASPARTATE AMINOTRANSFERASE 32 U/L (15-37); BILIRUBIN,TOTAL 0.5 mg/dL (0.2-1.0); CARBON DIOXIDE 29 mmol/L (21-32); CHLORIDE 97 mmol/L (98-107); CREATININE 0.8 mg/dL (0.6-1.3); GLUCOSE 83 mg/dL (74-106); PHOSPHOROUS 3.7 mg/dL (2.5-4.9); POTASSIUM 3.7 mmol/L (3.5-5.1); TOTAL PROTEIN, SERUM 7.2 g/dL (6.4-8.2); UREA NITROGEN, BLOOD 15 mg/dL (7-18)
[2023-01-30 07:37] VITALS: BP 123/42
[2023-01-30 07:39] LABS: THYROID STIMULATING HORMONE 2.508 mIU/mL (0.358-3.740)
[2023-01-30 07:43] LABS: HEMATOCRIT 36.1 % (31.2-41.9); MEAN CORPUSCULAR HEMOGLOBIN 30.9 uug (24.7-32.8); MEAN CORPUSCULAR VOLUME 95.1 fL (75.5-95.3); PLATELET COUNT (AUTO) 276 K/uL (179-408)
[2023-01-30 08:14] LABS: NEUTROPHILS % (MANUAL) 0 % (42-75)
[2023-01-30] MEDS: GUAIFENESIN LA 600 MG TABLET.SA PO SCH ×2 (09:30→20:02)
[2023-01-30] MEDS: AMLODIPINE 5 MG TABLET PO SCH (09:30)
[2023-01-30] MEDS: BETA CAROTENE/VIT C & E/MIN TABLET PO SCH ×2 (09:31→16:04)
[2023-01-30] MEDS: REMEDY ESSENTIAL ZINC PASTE 113 GM TOP SCH ×2 (09:31→20:04)
[2023-01-30] MEDS: TRAMADOL HCL 50 MG TABLET PO PRN (12:12)
--- NOTE | 2023-01-30 12:12 | NUR ---
25mg of tramadol wasted with wittness of another nurse on duty RN Ying
[2023-01-30 16:00] VITALS: BP 137/53
[2023-01-30] MEDS: LATANOPROST OPHT DROP 2.5 ML BOTTLE EACHEYE SCH (20:03)
[2023-01-30] MEDS: ATORVASTATIN 10 MG TABLET PO SCH (20:03)
[2023-01-30] MEDS: DOCUSATE SODIUM 100 MG CAPSULE PO SCH (20:03)
[2023-01-30] MEDS: GABAPENTIN 300 MG CAPSULE PO SCH (20:04)
[2023-01-30 20:35] VITALS: BP 125/48
[2023-01-30] MEDS: TEMAZEPAM 7.5 MG CAPSULE PO PRN (21:48)
[2023-01-31] MEDS: PANTOPRAZOLE SODIUM 40 MG TABLET.DR PO SCH (06:02)
[2023-01-31 06:13] VITALS: BP 120/52
[2023-01-31 07:51] VITALS: BP 130/53
[2023-01-31] MEDS: BETA CAROTENE/VIT C & E/MIN TABLET PO SCH ×2 (08:30→17:41)
[2023-01-31] MEDS: AMLODIPINE 5 MG TABLET PO SCH (08:30)
[2023-01-31] MEDS: GUAIFENESIN LA 600 MG TABLET.SA PO SCH ×2 (08:31→20:50)
[2023-01-31] MEDS: REMEDY ESSENTIAL ZINC PASTE 113 GM TOP SCH ×2 (08:31→20:50)
--- NOTE | 2023-01-31 09:59 | NUR ---
7:30, Pt received lying in bed, awake in no acute distress. She denies pain but requesting to walk. Report low appetite but states eating part of her breakfast and drink well. Pt with diaper, dry per Pt. Pt instructed to call if any help needed and to use call light
--- NOTE | 2023-01-31 10:37 | NUR ---
9:00, Pt was resting in bed, all meds given, Pt has no new requests
[2023-01-31] MEDS: BISACODYL 10 MG SUPP.RECT RC PRN (13:29)
[2023-01-31 15:48] VITALS: BP 128/69
[2023-01-31] MEDS: LORAZEPAM 0.5 MG TABLET PO PRN (16:23)
--- NOTE | 2023-01-31 19:08 | NUR ---
Pt getting report at 1200 Pt assisted with ambulation TO br, Pt requested stool softener effective had two BMs. Pt requested as well Antivert medication and Ativan given for anxiety. Pt assisted with her meals and her needs were attended. Pt worked with PT stable condition mo SOB observed Endorse care to incoming nurse
[2023-01-31] MEDS: ATORVASTATIN 10 MG TABLET PO SCH (20:50)
[2023-01-31] MEDS: DOCUSATE SODIUM 100 MG CAPSULE PO SCH (20:50)
[2023-01-31] MEDS: GABAPENTIN 300 MG CAPSULE PO SCH (20:50)
[2023-01-31] MEDS: LATANOPROST OPHT DROP 2.5 ML BOTTLE EACHEYE SCH (20:50)
[2023-01-31 21:01] VITALS: BP 153/62
--- NOTE | 2023-01-31 22:15 | NUR ---
patient requested she wants to used pure wick for tonight removed patient pull ups .
[2023-01-31] MEDS: TEMAZEPAM 7.5 MG CAPSULE PO PRN (22:26)
--- NOTE | 2023-01-31 22:26 | NUR ---
patient called c/o requesting sleeping medication to help her sleep given prn Restoril patient tolerated medication with water .
[2023-02-01 04:26] VITALS: BP 153/56
[2023-02-01] MEDS: PANTOPRAZOLE SODIUM 40 MG TABLET.DR PO SCH (06:40)
--- NOTE | 2023-02-01 06:54 | NUR ---
uneventful night slept most of the shift needs attended to .
[2023-02-01 08:06] VITALS: BP 137/52
[2023-02-01] MEDS: AMLODIPINE 5 MG TABLET PO SCH (09:49)
[2023-02-01] MEDS: BETA CAROTENE/VIT C & E/MIN TABLET PO SCH ×2 (09:49→17:26)
[2023-02-01] MEDS: GUAIFENESIN LA 600 MG TABLET.SA PO SCH ×2 (09:49→20:33)
[2023-02-01] MEDS: REMEDY ESSENTIAL ZINC PASTE 113 GM TOP SCH ×2 (09:50→20:33)
--- NOTE | 2023-02-01 14:30 | NUR ---
Pt came to me 10 minutes ago and stated "I would like to go home if I can have a day like today" tomorrow (Wednesday) and Wednesday, with PT and OT and getting up out of bed and moving. "I don't want to stay here, I'm afraid I'll get sick with pneumonia." I reassured her that she is in good hands and most likely will not get sick her, that she is here for rehab. Pt insisted. I notified Raul, Leather Stripping Machine Operator on her behalf. CM just walked in to her room to discuss.
[2023-02-01 15:09] VITALS: BP 138/61
[2023-02-01] MEDS: ACETAMINOPHEN 325 MG TABLET PO PRN (17:26)
[2023-02-01] MEDS: SENNOSIDES 1 TABLET PO PRN (17:38)
[2023-02-01 19:25] VITALS: BP 133/69
[2023-02-01] MEDS: DOCUSATE SODIUM 100 MG CAPSULE PO SCH (20:33)
[2023-02-01] MEDS: ATORVASTATIN 10 MG TABLET PO SCH (20:33)
[2023-02-01] MEDS: GABAPENTIN 300 MG CAPSULE PO SCH (20:33)
[2023-02-01] MEDS: LATANOPROST OPHT DROP 2.5 ML BOTTLE EACHEYE SCH (20:33)
[2023-02-01] MEDS: LORAZEPAM 0.5 MG TABLET PO PRN (20:56)
[2023-02-02 05:14] VITALS: BP 126/56
[2023-02-02] MEDS: PANTOPRAZOLE SODIUM 40 MG TABLET.DR PO SCH (05:47)
[2023-02-02 07:46] VITALS: BP 140/69
[2023-02-02] MEDS: AMLODIPINE 5 MG TABLET PO SCH (08:14)
[2023-02-02] MEDS: BETA CAROTENE/VIT C & E/MIN TABLET PO SCH ×2 (08:14→16:44)
[2023-02-02] MEDS: GUAIFENESIN LA 600 MG TABLET.SA PO SCH ×2 (08:14→19:51)
[2023-02-02] MEDS: REMEDY ESSENTIAL ZINC PASTE 113 GM TOP SCH ×2 (08:15→19:53)
[2023-02-02] MEDS: TRAMADOL HCL 50 MG TABLET PO PRN ×2 (13:23→19:51)
[2023-02-02 15:08] VITALS: BP 122/46
[2023-02-02] MEDS: ACETAMINOPHEN 325 MG TABLET PO PRN (16:44)
--- NOTE | 2023-02-02 18:21 | NUR ---
patient is ambulatory with FWW, no sob, respirations are even nonlabored, skin warm and dry to touch, ambulates in the hallway with fww frequently. tolerated PT, OT well. no events noted.
[2023-02-02] MEDS: GABAPENTIN 300 MG CAPSULE PO SCH (19:52)
[2023-02-02] MEDS: ATORVASTATIN 10 MG TABLET PO SCH (19:53)
[2023-02-02] MEDS: LATANOPROST OPHT DROP 2.5 ML BOTTLE EACHEYE SCH (19:53)
[2023-02-02] MEDS: DOCUSATE SODIUM 100 MG CAPSULE PO SCH (19:53)
[2023-02-02] MEDS: LORAZEPAM 0.5 MG TABLET PO PRN (21:21)
[2023-02-03 00:54] VITALS: BP 119/61
[2023-02-03] MEDS: PANTOPRAZOLE SODIUM 40 MG TABLET.DR PO SCH (06:34)
[2023-02-03 06:47] VITALS: BP 117/73
--- NOTE | 2023-02-03 07:45 | NUR ---
Nursing notes, patient in her room awake, walking with FWW, with steady gait, no S/S distress noted, patient complain of pain and requested Tramadol po given as ordered. Fall and safety precautions implemented. Will continue to monitor.
[2023-02-03 07:49] VITALS: BP 134/60
[2023-02-03] MEDS: TRAMADOL HCL 50 MG TABLET PO PRN ×2 (07:52→20:40)
[2023-02-03] MEDS: BETA CAROTENE/VIT C & E/MIN TABLET PO SCH ×2 (08:00→16:12)
[2023-02-03] MEDS: GUAIFENESIN LA 600 MG TABLET.SA PO SCH ×2 (08:00→20:31)
[2023-02-03] MEDS: AMLODIPINE 5 MG TABLET PO SCH (08:02)
[2023-02-03] MEDS: REMEDY ESSENTIAL ZINC PASTE 113 GM TOP SCH ×2 (08:02→20:50)
[2023-02-03] MEDS: ACETAMINOPHEN 325 MG TABLET PO PRN ×2 (10:36→17:12)
--- NOTE | 2023-02-03 12:28 | NUR ---
Nursing notes: Patient is eating lunch in room at this time, denies pain or discomforts, participated with PT/OT treatment plan. pain medication given as ordered for pain and is was effective. Fall and safety implemented and emotional support provided. Will continue to monitor.
--- NOTE | 2023-02-03 14:23 | NUR ---
INTERDISCIPLINARY TEAM CONFERENCE
[2023-02-03 15:13] VITALS: BP 143/48
[2023-02-03] MEDS: LORAZEPAM 0.5 MG TABLET PO PRN (17:12)
[2023-02-03 19:58] VITALS: BP 137/61
[2023-02-03] MEDS: DOCUSATE SODIUM 100 MG CAPSULE PO SCH (20:30)
[2023-02-03] MEDS: GABAPENTIN 300 MG CAPSULE PO SCH (20:30)
[2023-02-03] MEDS: ATORVASTATIN 10 MG TABLET PO SCH (20:30)
[2023-02-03] MEDS: LATANOPROST OPHT DROP 2.5 ML BOTTLE EACHEYE SCH (20:31)
[2023-02-04] MEDS: ACETAMINOPHEN 325 MG TABLET PO PRN ×2 (02:47→13:53)
[2023-02-04 04:30] VITALS: BP 118/45
[2023-02-04] MEDS: PANTOPRAZOLE SODIUM 40 MG TABLET.DR PO SCH (06:13)
[2023-02-04 08:00] VITALS: BP 149/64
--- NOTE | 2023-02-04 08:00 | NUR ---
resting in bed , denies of pain at this time, states is going back to [facility] today, safety measures in place, looking forward for her therapy, call light within reach
[2023-02-04] MEDS: BETA CAROTENE/VIT C & E/MIN TABLET PO SCH (08:56)
[2023-02-04] MEDS: AMLODIPINE 5 MG TABLET PO SCH (08:56)
[2023-02-04] MEDS: GUAIFENESIN LA 600 MG TABLET.SA PO SCH (08:56)
[2023-02-04] MEDS: REMEDY ESSENTIAL ZINC PASTE 113 GM TOP SCH (08:57)
[2023-02-04] MEDS: TRAMADOL HCL 50 MG TABLET PO PRN (11:07)
--- NOTE | 2023-02-04 11:07 | NUR ---
c/o of generalized pain- medicated with Ultram as ordered for pain with relief
--- NOTE | 2023-02-04 13:00 | NUR ---
pt made aware ambulance will be here at 1500
--- NOTE | 2023-02-04 13:55 | NUR ---
medicated with Tylenol 650mg as ordered for mild pain- quite anxious to go back to [facility]-pt reassured
--- NOTE | 2023-02-04 14:20 | NUR ---
report given to Anusha at [facility]
[2023-02-04 15:39] VITALS: BP 144/69
--- NOTE | 2023-02-04 15:50 | NUR ---
ambulance here, ID bracelet given, discharge instructions given and verbalized understanding, all belongings with her, taken per adalid in stable condition
--- NOTE | 2023-02-05 14:22 | NUR ---
INTERDISCIPLINARY TEAM CONFERENCE
== END 2023-02-04 15:50 | disposition home health service (06) | DRG 949 ==
PROVIDERS: ADMIT Physical Medicine & Rehabilitation Pain Medicine; ATTEND Physical Medicine & Rehabilitation Pain Medicine
DX: S06.6XAD Traumatic subarachnoid hemorrhage with loss of consciousness status unknown, subsequent encounter (principal); I21.A1 Myocardial infarction type 2; D68.59 Other primary thrombophilia; E22.2 Syndrome of inappropriate secretion of antidiuretic hormone; S06.5XAD Traumatic subdural hemorrhage with loss of consciousness status unknown, subsequent encounter; I25.10 Atherosclerotic heart disease of native coronary artery without angina pectoris; I25.2 Old myocardial infarction; I10 Essential (primary) hypertension; E78.5 Hyperlipidemia, unspecified; W18.30XD Fall on same level, unspecified, subsequent encounter; M43.12 Spondylolisthesis, cervical region; J45.909 Unspecified asthma, uncomplicated; I35.8 Other nonrheumatic aortic valve disorders; M48.02 Spinal stenosis, cervical region; H81.10 Benign paroxysmal vertigo, unspecified ear; M51.36 Other intervertebral disc degeneration, lumbar region; Z20.822 Contact with and (suspected) exposure to COVID-19; Z79.899 Other long term (current) drug therapy; Z87.891 Personal history of nicotine dependence; Z88.0 Allergy status to penicillin; Z88.1 Allergy status to other antibiotic agents; Z88.2 Allergy status to sulfonamides; Z88.8 Allergy status to other drugs, medicaments and biological substances; R26.9 Unspecified abnormalities of gait and mobility; I35.1 Nonrheumatic aortic (valve) insufficiency; R53.1 Weakness
CPT/HCPCS: 36415; 70030-TC; 83735; 83935; 84100; 84300; 84443; 84550; 85025; 97535-GO-CO; J8597

== ENCOUNTER 2023-02-15 11:01 | Emergency (ER) | payer MEDICARE, BC ==
[~2023-02-15] VITALS: Ht 144.8 cm; Wt 54.9 kg
[~2023-02-15 11:01] MED LIST changes: -ACET-2605 PO; -ALBU18HF2 IH; -ASCO500T85 PO; -ASPI-1101 PO; -CHOL10005 PO; -FLUT12AE20 IH; -GABA600T12 PO; -LOPE2TAB25 PO; -LOSA25TA3 PO; -METO50TA7 PO; -ROSU5TAB PO
--- NOTE | 2023-02-15 11:12 | NUR ---
pt arrived via EMS, AXO x4, c/o right knee pain, seen and examined by ER
--- NOTE | 2023-02-15 11:46 | NUR ---
Pt's son on the phone with Dr. Haywood.
--- NOTE | 2023-02-15 12:13 | NUR ---
[facility] luna Viera and she adviced to carrascoRaul goldberg called and He provided [facility]' director # who was called and detail message left requesting him to call us phone number left.
[2023-02-15] MEDS ORDERED: HYDROCODONE/APAP 5-325MG TABLET PO ONE (12:30)
--- NOTE | 2023-02-15 12:30 | NUR ---
patient assisted to use facility ambulated with maximum assistance. notified
--- NOTE | 2023-02-15 12:32 | NUR ---
A call from the director of [facility] discusssing care plan with
[2023-02-15] MEDS ORDERED: HYDROCODONE/APAP 5-325MG TABLET ONE (12:37)
[2023-02-15] MEDS ORDERED: NAPR-1009 PO (12:39)
--- NOTE | 2023-02-15 12:42 | NUR ---
Transportation been arranged by mina Jaffe
--- NOTE | 2023-02-15 12:44 | NUR ---
Called [facility] for pt's trsansfer back to [facility], ETA 45 to 1 hour.
--- NOTE | 2023-02-15 13:35 | NUR ---
VSS, A&O, Pt resting comfortably in bed, states pain relieved, ysabel wrap on left knee. Verbalized understanding of d/c instructions, continue rest and elevation. Report to transport
== END 2023-02-15 13:41 | disposition home or self-care (01) ==
LOC: ER 11:01
DX: S83.92XA Sprain of unspecified site of left knee, initial encounter (principal); I10 Essential (primary) hypertension; I25.10 Atherosclerotic heart disease of native coronary artery without angina pectoris; E78.5 Hyperlipidemia, unspecified; J45.909 Unspecified asthma, uncomplicated; Z88.0 Allergy status to penicillin; Z88.2 Allergy status to sulfonamides; Z88.1 Allergy status to other antibiotic agents; Z88.8 Allergy status to other drugs, medicaments and biological substances; Z79.899 Other long term (current) drug therapy; X58.XXXA Exposure to other specified factors, initial encounter; Y93.89 Activity, other specified; Y92.89 Other specified places as the place of occurrence of the external cause; Y99.8 Other external cause status
CPT/HCPCS: A4663

== ENCOUNTER 2023-04-02 21:05 | Inpatient (IN) | payer MEDICARE, BC ==
[~2023-04-02] VITALS: Ht 144.8 cm; Wt 53.1 kg
[~2023-04-02 21:05] MED LIST changes: +ACET-2605 PO; +ALBU18HF2 IH; -ALBU2.5V7 NEB; +ASPI81TA31 PO; +ATOR10TA PO; -BISA10SU12 RC; +CHOL500050 PO; +FLUT12AE5 IH; -GABA300C PO; +GABA600T12 PO; +LOPE2CAP14 PO; +LOSA25TA27 PO; -MAGN400O6 PO; +MELO-105 PO; +METO-357 PO; -PANT40TA49 PO; +ROSU5TAB13 PO; -TEMA7.5C PO; +[UNRECOGNIZED DRUG - CODE] PO
[2023-04-02] MEDS ORDERED: IV NORMAL SALINE 1000 ML BAG IV ONE (21:45)
[2023-04-02] MEDS ORDERED: CEFTRIAXONE 1 G in IV DEXTROSE 5% 50 ML IV ONE (21:45)
[2023-04-02] MEDS ORDERED: METRONIDAZOLE 500 MG/NS 100 ML PIGGYBACK IV ONE (21:45)
[2023-04-02] MEDS ORDERED: CEFTRIAXONE /D5W 50ML IVPB **ER PYXIS IV ONE (22:04)
[2023-04-02 22:08] LABS: HEMATOCRIT 23.8 % (31.2-41.9); MEAN CORPUSCULAR VOLUME 96.2 fL (75.5-95.3); PLATELET COUNT (AUTO) 290 K/uL (179-408)
[2023-04-02 22:22] LABS: CARBON DIOXIDE 25 mmol/L (21-32); CHLORIDE 98 mmol/L (98-107); POTASSIUM 4.6 mmol/L (3.5-5.1)
[2023-04-02 22:23] LABS: *BILIRUBIN,URIN NEGATIVE (NEGATIVE); *CLARITY,URINE CLEAR (CLEAR); *COLOR,URINE YELLOW (YELLOW); *KETONES,URINE NEGATIVE (NEGATIVE); *UROBILINOGEN,URINE 0.2 E.U./dl (NORMAL); LEUKOCYTE ESTERASE ,URINE 1+ (NEGATIVE); NITRITE, URINE NEGATIVE (NEGATIVE); UGLUCOSE NEGATIVE (NEGATIVE)
[2023-04-02 22:24] LABS: UREA NITROGEN, BLOOD 84 mg/dL (7-18)
[2023-04-02 22:25] LABS: *BLOOD, URINE TRACE (NEGATIVE)
[2023-04-02 22:31] LABS: ALANINE AMINOTRANSFERASE 154 U/L (14-59); ALKALINE PHOSPHATASE 165 U/L (50-136); ASPARTATE AMINOTRANSFERASE 40 U/L (15-37); BILIRUBIN,DIRECT 0.1 mg/dL (0.0-0.2); BILIRUBIN,TOTAL 0.3 mg/dL (0.2-1.0); TOTAL PROTEIN, SERUM 6.2 g/dL (6.4-8.2)
[2023-04-02 22:56] LABS: BACTERIA,URINE FEW /HPF (NONE SEEN); SQUAMOUS EPITHELIAL CELL,UR FEW /HPF (NONE SEEN)
[2023-04-02] MEDS ORDERED: METRONIDAZOLE 500 MG/NS 100ML 100 ML IV ONE (23:16)
[2023-04-02 23:52] LABS: *OCCULT BLOOD STOOL POSITIVE (NEGATIVE)
[2023-04-03] VITALS (8 sets, daily range): BP systolic 100–124; BP diastolic 40–50; TEMP 98.2–99.3; O2SAT 95–98
[2023-04-03] MEDS ORDERED: CEFTRIAXONE 1 G in IV DEXTROSE 5% 50 ML IV SCH (01:00)
[2023-04-03] MEDS ORDERED: MECLIZINE HCL 25 MG TABLET PO PRN (01:00)
[2023-04-03] MEDS ORDERED: hydrALAZINE HCL 20 MG/1 ML VIAL IV PRN (01:00)
[2023-04-03 01:16] LABS: HEMATOCRIT 21.5 % (31.2-41.9)
[2023-04-03] MEDS ORDERED: ALBUTEROL SULFATE 2.5 MG/3 ML NEBU NEB PRN (02:45)
[2023-04-03] MEDS: IV NS 1000 ML 1,000 ML IV SCH ×3 (03:27→22:17)
[2023-04-03] MEDS: PANTOPRAZOLE SODIUM 40 MG VIAL IV SCH ×2 (03:32→14:30)
[2023-04-03] MEDS: MORPHINE SULFATE 2 MG/1 ML DISP.SYRIN IVP PRN ×3 (04:34→20:20)
[2023-04-03] MEDS: METOPROLOL SUCCINATE XL 50 MG TAB.SR.24H PO SCH (08:36)
[2023-04-03] MEDS ORDERED: LOSARTAN POTASSIUM 25 MG TABLET PO SCH (09:00)
[2023-04-03] MEDS ORDERED: AMLODIPINE 5 MG TABLET PO SCH (09:00)
[2023-04-03] MEDS ORDERED: PANTOPRAZOLE SODIUM IV 40 MG in IV DEXTROSE 5% 100 ML IV SCH (09:00)
[2023-04-03 09:19] LABS: HEMATOCRIT 19.2 % (31.2-41.9)
[2023-04-03] MEDS: ACETAMINOPHEN 325 MG TABLET PO PRN (13:18)
[2023-04-03] MEDS: LORAZEPAM 0.5 MG TABLET PO PRN ×2 (13:18→21:34)
[2023-04-03 19:35] LABS: *CREATININE,URINE 28.3 mg/dL (30-125); *URINE TOTAL PROTEIN RANDOM < 6.0 mg/dL (<150/24HR)
[2023-04-03 19:47] LABS: *BILIRUBIN,URIN NEGATIVE (NEGATIVE); *BLOOD, URINE NEGATIVE (NEGATIVE); *CLARITY,URINE CLEAR (CLEAR); *COLOR,URINE YELLOW (YELLOW); *KETONES,URINE NEGATIVE (NEGATIVE); *UROBILINOGEN,URINE 0.2 E.U./dl (NORMAL); LEUKOCYTE ESTERASE ,URINE TRACE (NEGATIVE); NITRITE, URINE NEGATIVE (NEGATIVE); UGLUCOSE NEGATIVE (NEGATIVE)
[2023-04-03] MEDS: GABAPENTIN 300 MG CAPSULE PO SCH (20:20)
[2023-04-03] MEDS: CEFTRIAXONE 1 G in IV DEXTROSE 5% 50 ML IV SCH (20:20)
[2023-04-03] MEDS: ATORVASTATIN 10 MG TABLET PO SCH (20:20)
[2023-04-03] MEDS: LATANOPROST OPHT DROP 2.5 ML BOTTLE EACHEYE SCH (20:21)
[2023-04-03] MEDS: METRONIDAZOLE 500 MG/NS 100ML 500 MG in PREMIXED 1 EACH IV SCH (22:17)
[2023-04-04] VITALS (10 sets, daily range): BP systolic 94–135; BP diastolic 32–58; TEMP 98–98.7; O2SAT 96–100
[2023-04-04 01:27] LABS: HEMATOCRIT 19.6 % (31.2-41.9)
[2023-04-04 02:30] LABS: BACTERIA,URINE NONE SEEN /HPF (NONE SEEN); RBC,URINE NONE SEEN /HPF (0-3); SQUAMOUS EPITHELIAL CELL,UR NONE SEEN /HPF (NONE SEEN); WBC,URINE 0-3 /HPF (0-3)
[2023-04-04] MEDS: PANTOPRAZOLE SODIUM 40 MG VIAL IV SCH ×2 (03:47→14:47)
[2023-04-04] MEDS: MORPHINE SULFATE 2 MG/1 ML DISP.SYRIN IVP PRN (03:48)
[2023-04-04] MEDS: METRONIDAZOLE 500 MG/NS 100ML 500 MG in PREMIXED 1 EACH IV SCH ×3 (05:19→21:29)
[2023-04-04 07:33] LABS: MEAN CORPUSCULAR HEMOGLOBIN 31.5 uug (24.7-32.8); MEAN CORPUSCULAR VOLUME 93.3 fL (75.5-95.3); PLATELET COUNT (AUTO) 184 K/uL (179-408)
[2023-04-04 07:48] LABS: HEMATOCRIT 20.1 % (31.2-41.9)
[2023-04-04 07:55] LABS: BILIRUBIN,TOTAL 0.5 mg/dL (0.2-1.0); CREATININE 0.6 mg/dL (0.6-1.3); MAGNESIUM 1.8 mg/dL (1.8-2.4); POTASSIUM 3.9 mmol/L (3.5-5.1); TOTAL PROTEIN, SERUM 4.8 g/dL (6.4-8.2)
[2023-04-04] MEDS: METOPROLOL SUCCINATE XL 50 MG TAB.SR.24H PO SCH (09:00)
[2023-04-04 11:40] LABS: EOSINOPHILS % (MANUAL) 1 % (0-8); LYMPHOCYTES % (MANUAL) 23 % (20-40); MONOCYTES % (MANUAL) 11 % (2-10); NEUTROPHILS % (MANUAL) 65 % (42-75)
[2023-04-04] MEDS: ONDANSETRON 4 MG/2 ML VIAL IV PRN (13:05)
[2023-04-04] MEDS: LORAZEPAM 0.5 MG TABLET PO PRN (13:06)
[2023-04-04 13:08] LABS: HEMATOCRIT 27.5 % (31.2-41.9)
[2023-04-04] MEDS: IV NS 1000 ML 1,000 ML IV SCH (14:47)
[2023-04-04] MEDS: LATANOPROST OPHT DROP 2.5 ML BOTTLE EACHEYE SCH (20:09)
[2023-04-04] MEDS: CEFTRIAXONE 1 G in IV DEXTROSE 5% 50 ML IV SCH (20:09)
[2023-04-04] MEDS: GABAPENTIN 300 MG CAPSULE PO SCH (20:10)
[2023-04-04] MEDS: ATORVASTATIN 10 MG TABLET PO SCH (20:10)
[2023-04-04] MEDS: LOPERAMIDE HCL 2 MG CAPSULE PO PRN (20:21)
[2023-04-05] VITALS: BP 102/63; TEMP 98.4; O2SAT 99
[2023-04-05] MEDS: PANTOPRAZOLE SODIUM 40 MG VIAL IV SCH (03:13)
[2023-04-05] MEDS: IV NS 1000 ML 1,000 ML IV SCH ×2 (03:14→17:25)
[2023-04-05 04:00] VITALS: BP 122/46; TEMP 98.4; O2SAT 98
[2023-04-05] MEDS: ONDANSETRON 4 MG/2 ML VIAL IV PRN (04:34)
[2023-04-05] MEDS: LORAZEPAM 0.5 MG TABLET PO PRN ×2 (04:34→22:12)
[2023-04-05] MEDS: METRONIDAZOLE 500 MG/NS 100ML 500 MG in PREMIXED 1 EACH IV SCH ×3 (05:05→22:03)
[2023-04-05 07:06] LABS: MEAN CORPUSCULAR VOLUME 93.6 fL (75.5-95.3); PLATELET COUNT (AUTO) 188 K/uL (179-408)
[2023-04-05 07:30] LABS: CREATININE 0.7 mg/dL (0.6-1.3); MAGNESIUM 1.8 mg/dL (1.8-2.4); PHOSPHOROUS 3.4 mg/dL (2.5-4.9); POTASSIUM 3.4 mmol/L (3.5-5.1)
[2023-04-05] MEDS ORDERED: POTASSIUM CHLORIDE 50 ML IV SCH ×2 (08:15→08:30)
[2023-04-05] MEDS ORDERED: LIDOCAINE-MPF 2% 5 ML VIAL ONE (10:30)
[2023-04-05] MEDS ORDERED: PROPOFOL 200 MG/20 ML BOTTLE ONE (10:30)
[2023-04-05] MEDS ORDERED: EPHEDRINE SULFATE 50 MG/ML AMPUL ONE (10:30)
[2023-04-05] MEDS: POTASSIUM CHLORIDE 10 MEQ, LIDOCAINE-MPF 1% 1 ML in IV DEXTROSE 5% 100 ML IV SCH ×4 (11:19→16:09)
[2023-04-05 11:47] VITALS: BP 121/42; TEMP 98.6; O2SAT 95
[2023-04-05 15:37] VITALS: BP 103/43; TEMP 98.2; O2SAT 98
[2023-04-05 20:31] VITALS: BP 123/53; TEMP 98.8; O2SAT 97
[2023-04-05] MEDS: ATORVASTATIN 10 MG TABLET PO SCH (21:12)
[2023-04-05] MEDS: LATANOPROST OPHT DROP 2.5 ML BOTTLE EACHEYE SCH (21:12)
[2023-04-05] MEDS: GABAPENTIN 300 MG CAPSULE PO SCH (21:12)
[2023-04-05] MEDS: CEFTRIAXONE 1 G in IV DEXTROSE 5% 50 ML IV SCH (21:16)
[2023-04-06] MEDS: IV NS 1000 ML 1,000 ML IV SCH ×2 (05:03→17:03)
[2023-04-06] MEDS: METRONIDAZOLE 500 MG/NS 100ML 500 MG in PREMIXED 1 EACH IV SCH ×3 (06:08→21:21)
[2023-04-06] MEDS: PANTOPRAZOLE SODIUM 40 MG TABLET.DR PO SCH (06:40)
[2023-04-06 06:45] LABS: HEMATOCRIT 25.8 % (31.2-41.9); MEAN CORPUSCULAR HEMOGLOBIN 31.7 uug (24.7-32.8); MEAN CORPUSCULAR VOLUME 94.4 fL (75.5-95.3); PLATELET COUNT (AUTO) 194 K/uL (179-408)
[2023-04-06 06:56] LABS: CARBON DIOXIDE 23 mmol/L (21-32); CHLORIDE 110 mmol/L (98-107); CREATININE 0.6 mg/dL (0.6-1.3); MAGNESIUM 1.7 mg/dL (1.8-2.4); PHOSPHOROUS 3.2 mg/dL (2.5-4.9); POTASSIUM 3.7 mmol/L (3.5-5.1); UREA NITROGEN, BLOOD 6 mg/dL (7-18)
[2023-04-06 11:17] LABS: A/G RATIO 1.2 (0.7-1.7); ALBUMIN 2.3 g/dL (2.9-4.4); ALPHA-1-GLOBULIN 0.2 g/dL (0.0-0.4); ALPHA-2-GLOBULIN 0.5 g/dL (0.4-1.0); BETA GLOBULIN 0.6 g/dL (0.7-1.3); GAMMA GLOBULIN 0.6 g/dL (0.4-1.8); M-SPIKE Not Observed g/dL (Not Observed)
[2023-04-06 12:00] VITALS: BP 110/48; TEMP 98.1; O2SAT 100
[2023-04-06] MEDS: LORAZEPAM 0.5 MG TABLET PO PRN ×2 (13:11→22:07)
[2023-04-06] MEDS: MAGNESIUM OXIDE 400 MG TABLET PO SCH ×2 (13:35→17:04)
[2023-04-06 15:33] VITALS: BP 125/42; TEMP 98.4; O2SAT 97
[2023-04-06] MEDS ORDERED: REMEDY ESSENTIAL ZINC PASTE 113 GM TOP PRN (18:45)
[2023-04-06] MEDS: ATORVASTATIN 10 MG TABLET PO SCH (20:08)
[2023-04-06] MEDS: LOPERAMIDE HCL 2 MG CAPSULE PO PRN (20:09)
[2023-04-06] MEDS: CEFTRIAXONE 1 G in IV DEXTROSE 5% 50 ML IV SCH (20:09)
[2023-04-06] MEDS: GABAPENTIN 300 MG CAPSULE PO SCH (20:09)
[2023-04-06] MEDS: LATANOPROST OPHT DROP 2.5 ML BOTTLE EACHEYE SCH (20:09)
[2023-04-06 20:19] VITALS: BP 117/53; TEMP 99.4; O2SAT 95
[2023-04-07 04:10] VITALS: BP 140/52; TEMP 98.8; O2SAT 98
[2023-04-07] MEDS: PANTOPRAZOLE SODIUM 40 MG TABLET.DR PO SCH (05:59)
[2023-04-07] MEDS: METRONIDAZOLE 500 MG/NS 100ML 500 MG in PREMIXED 1 EACH IV SCH ×2 (06:00→14:07)
[2023-04-07] MEDS: IV NS 1000 ML 1,000 ML IV SCH (06:01)
[2023-04-07 06:44] LABS: HEMATOCRIT 26.2 % (31.2-41.9); MEAN CORPUSCULAR HEMOGLOBIN 31.7 uug (24.7-32.8); MEAN CORPUSCULAR VOLUME 95.5 fL (75.5-95.3); PLATELET COUNT (AUTO) 201 K/uL (179-408)
[2023-04-07] MEDS ORDERED: POTASSIUM CHLORIDE 20 MEQ POWDER PACKET GT ONE (07:30)
[2023-04-07] MEDS: MAGNESIUM SULFATE/D5W 100 ML IV SCH ×2 (08:05→09:09)
[2023-04-07 15:06] VITALS: BP 115/43; TEMP 98.6; O2SAT 96
[2023-04-07] MEDS: ACETAMINOPHEN 325 MG TABLET PO PRN (15:08)
[2023-04-07] MEDS: LORAZEPAM 0.5 MG TABLET PO PRN (17:40)
== END 2023-04-07 18:15 | DRG 377 ==
LOC: ER 21:05 → TELE3 04-03 02:12 → MEDSURG3 04-05 10:00
PROVIDERS: ADMIT Internal Medicine; ATTEND Internal Medicine
PROC: 30233N1 Transfusion of Nonautologous Red Blood Cells into Peripheral Vein, Percutaneous Approach (ICD-10-PCS; principal; 2023-04-03)
PROC: 0DB68ZX Excision of Stomach, Via Natural or Artificial Opening Endoscopic, Diagnostic (ICD-10-PCS; 2023-04-05)
DX: K25.4 Chronic or unspecified gastric ulcer with hemorrhage (principal); N17.0 Acute kidney failure with tubular necrosis; A04.9 Bacterial intestinal infection, unspecified; D62 Acute posthemorrhagic anemia; E44.0 Moderate protein-calorie malnutrition; D68.59 Other primary thrombophilia; I13.0 Hypertensive heart and chronic kidney disease with heart failure and stage 1 through stage 4 chronic kidney disease, or unspecified chronic kidney disease; I50.32 Chronic diastolic (congestive) heart failure; N39.0 Urinary tract infection, site not specified; M48.56XA Collapsed vertebra, not elsewhere classified, lumbar region, initial encounter for fracture; E87.1 Hypo-osmolality and hyponatremia; K29.71 Gastritis, unspecified, with bleeding; I25.2 Old myocardial infarction; Z90.2 Acquired absence of lung [part of]; Z85.110 Personal history of malignant carcinoid tumor of bronchus and lung; F41.9 Anxiety disorder, unspecified; I95.9 Hypotension, unspecified; K58.1 Irritable bowel syndrome with constipation; H40.9 Unspecified glaucoma; H35.30 Unspecified macular degeneration; I35.1 Nonrheumatic aortic (valve) insufficiency; N18.9 Chronic kidney disease, unspecified; F10.10 Alcohol abuse, uncomplicated; J44.9 Chronic obstructive pulmonary disease, unspecified; K57.30 Diverticulosis of large intestine without perforation or abscess without bleeding; I25.10 Atherosclerotic heart disease of native coronary artery without angina pectoris; M81.0 Age-related osteoporosis without current pathological fracture; N20.0 Calculus of kidney; M43.16 Spondylolisthesis, lumbar region; I70.0 Atherosclerosis of aorta; G89.29 Other chronic pain; M48.00 Spinal stenosis, site unspecified; E86.0 Dehydration; Z86.39 Personal history of other endocrine, nutritional and metabolic disease; I70.91 Generalized atherosclerosis; R74.01 Elevation of levels of liver transaminase levels; Z87.820 Personal history of traumatic brain injury; Z74.09 Other reduced mobility; Z91.81 History of falling; Z79.1 Long term (current) use of non-steroidal anti-inflammatories (NSAID); Z88.8 Allergy status to other drugs, medicaments and biological substances; Z88.2 Allergy status to sulfonamides; Z88.1 Allergy status to other antibiotic agents; Z87.891 Personal history of nicotine dependence; Z88.0 Allergy status to penicillin; Z79.899 Other long term (current) drug therapy; Z79.51 Long term (current) use of inhaled steroids; Z79.82 Long term (current) use of aspirin; Z95.5 Presence of coronary angioplasty implant and graft
CPT/HCPCS: 36415; 70030-TC; 71045; 71250; 82378; 83605; 83690; 83735; 83970; 84100; 84155; 84165; 84300; 84484; 85018; 85025; 85730; 86850; 86900; 86901; 86920; 87040; 88313-TC; 88342; 93005; A4663; A6213; C9113; G0378; J0696; J2001; J2270; J2405; J3475; J3480; J3490; J7040; P9016

== ENCOUNTER 2023-06-28 18:40 | Inpatient (IN) | payer MEDICARE, BC ==
[~2023-06-28] VITALS: Ht 144.8 cm; Wt 51.7 kg
[~2023-06-28 18:40] MED LIST changes: -ACET-2605 PO; +ACET325C7 PO; +ASPI-1101 PO; -ASPI81TA31 PO; -CHOL500050 PO; -MELO-105 PO; -METO-357 PO; +PANT40TA49 PO; -ROSU5TAB13 PO
[2023-06-28 20:42] VITALS: BP 141/63; TEMP 97.8; O2SAT 93
[2023-06-28] MEDS ORDERED: DOCUSATE SODIUM 100 MG CAPSULE PO PRN (21:00)
[2023-06-28] MEDS ORDERED: LOPERAMIDE HCL 2 MG CAPSULE PO PRN (21:00)
[2023-06-28] MEDS ORDERED: MECLIZINE HCL 25 MG TABLET PO PRN (21:00)
[2023-06-28] MEDS ORDERED: SENNOSIDES 1 TABLET PO PRN (21:00)
[2023-06-28] MEDS: ATORVASTATIN 10 MG TABLET PO SCH (21:47)
[2023-06-28] MEDS: TRAMADOL HCL 50 MG TABLET PO PRN (21:49)
[2023-06-28] MEDS: LORAZEPAM 0.5 MG TABLET PO PRN (21:49)
[2023-06-28] MEDS: CEFTRIAXONE 1 G in IV DEXTROSE 5% 50 ML IV SCH (21:51)
[2023-06-29 04:05] VITALS: BP 158/81; TEMP 98; O2SAT 96
[2023-06-29] MEDS: PANTOPRAZOLE SODIUM 40 MG TABLET.DR PO SCH (06:33)
[2023-06-29 07:32] VITALS: BP 147/66; TEMP 97.7
[2023-06-29] MEDS ORDERED: Medication Not On Formulary EA (Vit C/E/Zn/Coppr/Lutein/Zeaxan (Preservision Areds 2 Sof PO SCH (09:00)
[2023-06-29] MEDS: LOSARTAN POTASSIUM 25 MG TABLET PO SCH (11:09)
[2023-06-29] MEDS: AMLODIPINE 5 MG TABLET PO SCH (11:10)
[2023-06-29] MEDS: ASPIRIN EC 81 MG TABLET.DR PO SCH (11:10)
[2023-06-29] MEDS: BETA CAROTENE/VIT C & E/MIN TABLET PO SCH ×2 (11:10→17:19)
[2023-06-29] MEDS: TRAMADOL HCL 50 MG TABLET PO PRN ×2 (13:01→21:24)
[2023-06-29 15:05] VITALS: BP 138/78; TEMP 98; O2SAT 96
[2023-06-29] MEDS: LORAZEPAM 0.5 MG TABLET PO PRN (18:34)
[2023-06-29 20:40] VITALS: BP 141/57; TEMP 98.3; O2SAT 94
[2023-06-29] MEDS: LATANOPROST OPHT DROP 2.5 ML BOTTLE EACHEYE SCH ×2 (21:00→21:25)
[2023-06-29] MEDS: ATORVASTATIN 10 MG TABLET PO SCH (21:24)
[2023-06-29] MEDS: GABAPENTIN 300 MG CAPSULE PO SCH (21:24)
[2023-06-29 21:48] VITALS: O2SAT 94
[2023-06-29] MEDS: CEFTRIAXONE 1 G in IV DEXTROSE 5% 50 ML IV SCH (22:10)
[2023-06-30] MEDS: PANTOPRAZOLE SODIUM 40 MG TABLET.DR PO SCH (06:27)
[2023-06-30 07:41] VITALS: BP 123/53; TEMP 97.8; O2SAT 97
[2023-06-30] MEDS: LOSARTAN POTASSIUM 25 MG TABLET PO SCH (10:22)
[2023-06-30] MEDS: ASPIRIN EC 81 MG TABLET.DR PO SCH (10:23)
[2023-06-30] MEDS: BETA CAROTENE/VIT C & E/MIN TABLET PO SCH ×2 (10:23→18:47)
[2023-06-30] MEDS: AMLODIPINE 5 MG TABLET PO SCH (10:23)
[2023-06-30] MEDS ORDERED: ALBUTEROL SULFATE 8 GM HFA.AER.AD IH PRN (11:45)
[2023-06-30] MEDS ORDERED: ALBUTEROL SULFATE 2.5 MG/3 ML NEBU NEB PRN (12:00)
[2023-06-30 15:45] VITALS: BP 119/55; TEMP 97.6; O2SAT 98
[2023-06-30 20:00] VITALS: BP 105/78; TEMP 98.4; O2SAT 95
[2023-06-30] MEDS: LATANOPROST OPHT DROP 2.5 ML BOTTLE EACHEYE SCH (21:00)
[2023-06-30] MEDS: GABAPENTIN 300 MG CAPSULE PO SCH (21:10)
[2023-06-30] MEDS: CEFTRIAXONE 1 G in IV DEXTROSE 5% 50 ML IV SCH (21:10)
[2023-06-30] MEDS: ATORVASTATIN 10 MG TABLET PO SCH (21:10)
[2023-06-30] MEDS: LORAZEPAM 0.5 MG TABLET PO PRN (23:35)
[2023-07-01 04:00] VITALS: BP 111/72; TEMP 98.2; O2SAT 95
[2023-07-01] MEDS: PANTOPRAZOLE SODIUM 40 MG TABLET.DR PO SCH (06:17)
[2023-07-01 08:00] VITALS: BP 141/54; TEMP 98.2; O2SAT 95
[2023-07-01] MEDS: BETA CAROTENE/VIT C & E/MIN TABLET PO SCH ×2 (08:37→16:51)
[2023-07-01] MEDS: LOSARTAN POTASSIUM 25 MG TABLET PO SCH (08:38)
[2023-07-01] MEDS: AMLODIPINE 5 MG TABLET PO SCH (08:38)
[2023-07-01] MEDS: ASPIRIN EC 81 MG TABLET.DR PO SCH (08:38)
[2023-07-01 12:07] VITALS: BP 113/51; TEMP 97.4; O2SAT 98
[2023-07-01] MEDS: LORAZEPAM 0.5 MG TABLET PO PRN ×2 (13:02→22:55)
[2023-07-01 20:00] VITALS: BP 117/46; TEMP 97.5; O2SAT 95
[2023-07-01] MEDS: TRAMADOL HCL 50 MG TABLET PO PRN (20:09)
[2023-07-01] MEDS: GABAPENTIN 300 MG CAPSULE PO SCH (20:09)
[2023-07-01] MEDS: LATANOPROST OPHT DROP 2.5 ML BOTTLE EACHEYE SCH (20:09)
[2023-07-01] MEDS: ATORVASTATIN 10 MG TABLET PO SCH (20:09)
[2023-07-02] MEDS: ALBUTEROL SULFATE 2.5 MG/3 ML NEBU NEB PRN (03:08)
[2023-07-02 03:10] VITALS: O2SAT 95
[2023-07-02 03:25] VITALS: O2SAT 95
[2023-07-02 04:00] VITALS: BP 126/46; TEMP 97.6; O2SAT 94
[2023-07-02] MEDS: PANTOPRAZOLE SODIUM 40 MG TABLET.DR PO SCH (06:10)
[2023-07-02 08:00] VITALS: BP 131/57; TEMP 97.9; O2SAT 96
[2023-07-02] MEDS: BETA CAROTENE/VIT C & E/MIN TABLET PO SCH ×2 (08:42→16:37)
[2023-07-02] MEDS: AMLODIPINE 5 MG TABLET PO SCH (08:42)
[2023-07-02] MEDS: LOSARTAN POTASSIUM 25 MG TABLET PO SCH (08:42)
[2023-07-02] MEDS: ASPIRIN EC 81 MG TABLET.DR PO SCH (08:44)
[2023-07-02] MEDS: ACETAMINOPHEN 325 MG TABLET PO PRN (13:55)
[2023-07-02] MEDS: TRAMADOL HCL 50 MG TABLET PO PRN (19:23)
[2023-07-02 20:42] VITALS: BP 136/37; TEMP 98.2; O2SAT 95
[2023-07-02] MEDS: GABAPENTIN 300 MG CAPSULE PO SCH (21:17)
[2023-07-02] MEDS: ATORVASTATIN 10 MG TABLET PO SCH (21:18)
[2023-07-02] MEDS: LORAZEPAM 0.5 MG TABLET PO PRN (21:18)
[2023-07-02] MEDS: LATANOPROST OPHT DROP 2.5 ML BOTTLE EACHEYE SCH (21:23)
[2023-07-03] MEDS: PANTOPRAZOLE SODIUM 40 MG TABLET.DR PO SCH (06:32)
[2023-07-03 07:55] VITALS: BP 142/44; TEMP 97.5; O2SAT 96
[2023-07-03] MEDS: AMLODIPINE 5 MG TABLET PO SCH (08:58)
[2023-07-03] MEDS: LOSARTAN POTASSIUM 25 MG TABLET PO SCH (08:58)
[2023-07-03] MEDS: ASPIRIN EC 81 MG TABLET.DR PO SCH (08:58)
[2023-07-03] MEDS: BETA CAROTENE/VIT C & E/MIN TABLET PO SCH ×2 (08:58→16:45)
[2023-07-03] MEDS: ACETAMINOPHEN 325 MG TABLET PO PRN (13:12)
[2023-07-03 16:00] VITALS: BP 143/55; TEMP 97.9; O2SAT 98
[2023-07-03] MEDS: TRAMADOL HCL 50 MG TABLET PO PRN (16:18)
[2023-07-03 20:00] VITALS: BP 146/50; TEMP 97.9; O2SAT 96
[2023-07-03] MEDS: ATORVASTATIN 10 MG TABLET PO SCH (20:59)
[2023-07-03] MEDS: LATANOPROST OPHT DROP 2.5 ML BOTTLE EACHEYE SCH (20:59)
[2023-07-03] MEDS: GABAPENTIN 300 MG CAPSULE PO SCH (20:59)
[2023-07-03] MEDS: LORAZEPAM 0.5 MG TABLET PO PRN (21:09)
[2023-07-03 22:15] VITALS: O2SAT 94
[2023-07-03 22:30] VITALS: O2SAT 96
[2023-07-04] VITALS: BP 138/58; TEMP 98.3; O2SAT 97
[2023-07-04] MEDS: ALBUTEROL SULFATE 2.5 MG/3 ML NEBU NEB PRN (00:40)
[2023-07-04 04:00] VITALS: BP 132/60; TEMP 98.2; O2SAT 99
[2023-07-04] MEDS: PANTOPRAZOLE SODIUM 40 MG TABLET.DR PO SCH (07:07)
[2023-07-04] MEDS: AMLODIPINE 5 MG TABLET PO SCH (08:31)
[2023-07-04] MEDS: LOSARTAN POTASSIUM 25 MG TABLET PO SCH (08:31)
[2023-07-04] MEDS: BETA CAROTENE/VIT C & E/MIN TABLET PO SCH ×2 (08:31→16:10)
[2023-07-04] MEDS: ASPIRIN EC 81 MG TABLET.DR PO SCH (08:31)
[2023-07-04] MEDS: TRAMADOL HCL 50 MG TABLET PO PRN ×2 (08:37→20:45)
[2023-07-04 12:00] VITALS: BP 111/45; TEMP 97.9; O2SAT 96
[2023-07-04] MEDS ORDERED: BENZOCAINE ORAL CARE 12 ML BOTTLE MM PRN (15:15)
[2023-07-04] MEDS: ACETAMINOPHEN 325 MG TABLET PO PRN (16:10)
[2023-07-04 16:19] VITALS: BP 133/59; TEMP 97.7; O2SAT 97
[2023-07-04] MEDS: ATORVASTATIN 10 MG TABLET PO SCH (20:41)
[2023-07-04] MEDS: LATANOPROST OPHT DROP 2.5 ML BOTTLE EACHEYE SCH (20:41)
[2023-07-04] MEDS: GABAPENTIN 300 MG CAPSULE PO SCH (20:41)
[2023-07-04 21:01] VITALS: O2SAT 94
[2023-07-04] MEDS: LORAZEPAM 0.5 MG TABLET PO PRN (22:13)
[2023-07-04 22:31] VITALS: BP 124/48; TEMP 98.2; O2SAT 94
[2023-07-05] MEDS: PANTOPRAZOLE SODIUM 40 MG TABLET.DR PO SCH (04:55)
[2023-07-05] MEDS: ACETAMINOPHEN 325 MG TABLET PO PRN (04:55)
[2023-07-05 05:28] VITALS: BP 101/50; TEMP 98; O2SAT 100
[2023-07-05 05:29] VITALS: BP 120/60; TEMP 98.6; O2SAT 100
[2023-07-05 05:57] LABS: BASOPHILS # (AUTO) 0.1 K/UL (0.0-0.2); BASOPHILS % (AUTO) 1.4 % (0.0-2.0); EOSINOPHILS # (AUTO) 0.8 K/uL (0.0-0.7); EOSINOPHILS % (AUTO) 11.3 % (0.0-7.0); HEMATOCRIT 34.1 % (31.2-41.9); HEMOGLOBIN 11.4 g/dL (10.9-14.3); LYMPHOCYTES # (AUTO) 1.4 K/uL (0.8-4.8); LYMPHOCYTES % (AUTO) 21.1 % (20.5-51.5); MEAN CORPUSCULAR HEMOGLOBIN 30.2 uug (24.7-32.8); MEAN CORPUSCULAR HGB CONC 33 g/dL (32.3-35.6); MEAN CORPUSCULAR VOLUME 90.5 fL (75.5-95.3); MONOCYTES # (AUTO) 1.3 K/uL (0.1-1.30); MONOCYTES % (AUTO) 18.8 % (0.0-11.0); NEUTROPHILS # (AUTO) 3.2 K/uL (1.8-8.9); NEUTROPHILS % (AUTO) 47.4 % (38.5-71.5); PLATELET COUNT (AUTO) 300 K/uL (179-408); RED BLOOD CELL COUNT(AUTO) 3.77 MIL/uL (3.63-4.92); RED CELL DISTRIBUTION WIDTH 16.6 % (12.3-17.7); WHITE BLOOD COUNT (AUTO) 6.8 K/uL (3.8-11.8)
[2023-07-05 06:20] LABS: BILIRUBIN,TOTAL 0.5 mg/dL (0.2-1.0); CALCIUM 8.5 mg/dL (8.5-10.1); CREATININE 0.8 mg/dL (0.6-1.3); MAGNESIUM 1.8 mg/dL (1.8-2.4); TOTAL PROTEIN, SERUM 6.1 g/dL (6.4-8.2)
[2023-07-05 06:48] LABS: DIFFERENTIAL COMMENT 1
[2023-07-05 07:50] VITALS: BP 120/49; TEMP 97.9; O2SAT 97
[2023-07-05 08:11] VITALS: BP 125/52
[2023-07-05] MEDS: BETA CAROTENE/VIT C & E/MIN TABLET PO SCH (08:11)
[2023-07-05] MEDS: LOSARTAN POTASSIUM 25 MG TABLET PO SCH (08:11)
[2023-07-05] MEDS: ASPIRIN EC 81 MG TABLET.DR PO SCH (08:11)
[2023-07-05] MEDS: AMLODIPINE 5 MG TABLET PO SCH (08:11)
[2023-07-05] MEDS: LORAZEPAM 0.5 MG TABLET PO PRN (14:12)
[2023-07-05 15:12] LABS: ANISOCYTOSIS 1+; EOSINOPHILS % (MANUAL) 5 % (0-8); LYMPHOCYTES % (MANUAL) 18 % (20-40); MONOCYTES % (MANUAL) 11 % (2-10); NEUTROPHILS % (MANUAL) 66 % (42-75); PLATELET ESTIMATE ADEQUATE
== END 2023-07-05 16:00 | DRG 948 ==
PROVIDERS: ADMIT Physical Medicine & Rehabilitation Pain Medicine; ATTEND Physical Medicine & Rehabilitation Pain Medicine
DX: R53.1 Weakness (principal); N17.9 Acute kidney failure, unspecified; N39.0 Urinary tract infection, site not specified; D68.59 Other primary thrombophilia; E44.0 Moderate protein-calorie malnutrition; Z85.110 Personal history of malignant carcinoid tumor of bronchus and lung; D50.9 Iron deficiency anemia, unspecified; E78.5 Hyperlipidemia, unspecified; E86.0 Dehydration; G89.29 Other chronic pain; I10 Essential (primary) hypertension; I25.2 Old myocardial infarction; J45.909 Unspecified asthma, uncomplicated; Z87.891 Personal history of nicotine dependence; Z90.2 Acquired absence of lung [part of]; I95.9 Hypotension, unspecified; F41.9 Anxiety disorder, unspecified; Z88.0 Allergy status to penicillin; Z88.1 Allergy status to other antibiotic agents; Z88.2 Allergy status to sulfonamides; Z88.8 Allergy status to other drugs, medicaments and biological substances; Z79.899 Other long term (current) drug therapy; M48.061 Spinal stenosis, lumbar region without neurogenic claudication; I25.10 Atherosclerotic heart disease of native coronary artery without angina pectoris; K58.0 Irritable bowel syndrome with diarrhea
CPT/HCPCS: 36415; 70030-TC; 83735; 84100; 85025; 94664; 97535-GO-CO; A9150; J0696; J8597